=== PATIENT | female | born 1990 | race Caucasian/White ===

== ENCOUNTER 2019-07-06 11:36 | Inpatient (IN) ==
[2019-07-06] MEDS ORDERED: HUMULIN R IV ONE ×3 (12:00→14:37)
[2019-07-06] MEDS ORDERED: NARCAN IV ONE (12:00)
[2019-07-06] MEDS ORDERED: NS 1,000 ML IV ONE ×3 (12:00→13:45)
--- NOTE | 2019-07-06 12:52 | Diag Imaging Result Doc PS360 ---
CHEST-PORTABLE - 07/06/2019 INDICATION: ams COMPARISON: None FINDINGS: The lungs are normally expanded and clear. Heart size and mediastinal contours are normal. No pneumothorax or pleural effusion. IMPRESSION: Negative exam. Electronically signed by Dk Yee 07/06/2019 12:49 PM
[2019-07-06 13:00] LABS: BASO# 0.02 X1000 (0.0-0.2); BASO% 0.1 % (0.0-0.8); HEMATOCRIT 50.3 % (37.0-47.0); HEMOGLOBIN 16.8 g/dL (12.0-16.0); IMM GRAN# 0.02 X1000 (0.0-0.04); IMM GRAN% 0.1 % (0.0-0.5); LYMPH# 0.81 X1000 (1.2-3.4); LYMPH% 5.5 % (20.5-51.1); MCH 26.1 PG (27-31); MCHC 33.4 g/dL (33-37); MCV 78.1 FL (81-99); MONO# 0.53 X1000 (0.11-0.59); MONO% 3.6 % (1.7-9.3); MPV 12.3 FL (7.4-10.4); NEUT# 13.39 X1000 (1.4-6.5); NEUT% 90.7 % (42.2-75.2); PLT 160 X1000 (130-400); RBC 6.44 XMIL (4.2-5.4); RDW 15.3 % (11.5-14.5); WBC 14.77 X1000 (4.8-10.8)
[2019-07-06 13:02] LABS: INR 1.09; PROTIME 14.2 Seconds (11.0-16.0)
[2019-07-06 13:09] LABS: ACETONE SERUM MODERATE (NEGATIVE)
[2019-07-06 13:21] LABS: ESTIMATED GFR > 60
--- NOTE | 2019-07-06 13:27 | Diag Imaging Result Doc PS360 ---
CT HEAD W/O CONTRAST - 07/06/2019 INDICATION: ams COMPARISON: None FINDINGS: The ventricles and sulci are normal in size and contour. No intracranial mass or hemorrhage. The skull is intact. The sinuses mastoids and middle ears are clear. IMPRESSION: Negative exam. This exam was performed using automated exposure control, adjustment of mA or kV according to patient size, and/or use of iterative reconstruction technique Electronically signed by Dk Yee 07/06/2019 1:25 PM
[2019-07-06 13:29] LABS: ACETAMINOPHEN < 1.2 ug/mL (10-30); AGAP 27; ALB/GLOB RATIO 1.5; ALBUMIN 4.9 g/dL (3.5-5.0); ALKALINE PHOSPHATASE 160 U/L (32-104); BUN 7 mg/dL (8-22); CALCIUM 9.9 mg/dL (8.8-10.2); CHLORIDE 101 mmol/L (98-107); CK PROFILE 1275 U/L (24-173); COSMO 288; CREATININE 0.7 mg/dL (0.5-0.9); GLUCOSE 358 mg/dL (70-104); GOT 38 U/L (10-30); GPT 43 U/L (10-36); LIPASE 20 U/L (13-60); MAGNESIUM 1.7 mg/dL (1.5-2.7); POTASSIUM 4.6 mmol/L (3.5-5.1); SALICYLATES < 3.00 mg/dL (3-10); SODIUM 138 mmol/L (136-145); TCO2 10 mmol/L (25-35); TOTAL BILIRUBIN 0.36 mg/dL (0.20-1.00); TOTAL PROTEIN 8.2 g/dL (6.3-8.3)
[2019-07-06] MEDS ORDERED: POTASSIUM CHLORIDE 10% LIQUID PO PRN (13:45)
[2019-07-06] MEDS ORDERED: SODIUM BICARBONATE 8.4% 100 MEQ in STERILE WATER INJ. 500 ML IV PRN ×2 (13:45→14:37)
[2019-07-06] MEDS ORDERED: POTASSIUM CHLORIDE 20 MEQ/SWI 20 MEQ/100 ML IVPB IV PRN ×3 (13:45→14:37)
[2019-07-06] MEDS ORDERED: D50W SYRINGE IV PRN ×3 (13:45→14:37)
[2019-07-06] MEDS ORDERED: MAGNESIUM SULFATE 2 GM/S.W.I. 2 GM/50 ML IVPB IV PRN ×2 (13:45→14:37)
[2019-07-06] MEDS ORDERED: POTASSIUM CHLORIDE 20% LIQUID PO PRN (13:45)
[2019-07-06] MEDS ORDERED: NS 1,000 ML IV SCH (13:45)
[2019-07-06] MEDS ORDERED: SODIUM PHOSPHATE 30 MMOL in D5W 250 ML IV PRN ×2 (13:45→14:37)
[2019-07-06] MEDS ORDERED: HUMULIN R 100 UNIT in NS 100 ML IV SCH ×2 (13:45→14:37)
[2019-07-06 13:51] LABS: BLOOD TYPE ARTERIAL; SAMPLE BLOOD; pH(98.6) 7.29 (7.35-7.45)
[2019-07-06 13:51] LABS: CK INDEX 0.6 (0.0-2.5); CK-MB 7.28 ng/mL (0.0-5.0)
[2019-07-06 13:52] LABS: HCO3-(ACT) 7.3 mmoll (20.0-26.0); MODALITY ROOM AIR; PO2(98.6) 120 mmHg (60-100)
[2019-07-06 13:53] LABS: ALLEN TEST YES
[2019-07-06 13:54] LABS: PCO2(98.6) 15 mmHg (35-45)
[2019-07-06 14:32] LABS: URINE SOURCE CATH
[2019-07-06 14:36] LABS: BILIRUBIN URINE NEGATIVE (NEGATIVE); BLOOD URINE MODERATE (NEGATIVE); COLOR YELLOW; GLUCOSE URINE >1000 mg/dL (NEGATIVE); KETONE URINE >150 mg/dL (NEGATIVE); LEUKOCYTES URINE NEGATIVE (NEGATIVE); NITRITE URINE NEGATIVE (NEGATIVE); PH URINE 5.5; PROTEIN URINE 30 mg/dL (NEGATIVE); TURBIDITY URINE CLEAR (CLEAR); UROBILINOGEN URINE NORMAL (NORMAL)
[2019-07-06 14:37] LABS: UR EPITHELIAL CELLS <10 /HPF (<10); URINE BACTERIA NEGATIVE /HPF; URINE RBC <10 /HPF (<10); URINE WBC <10 /HPF (<10)
[2019-07-06] MEDS ORDERED: POTASSIUM CHLORIDE 40 MEQ/SWI 40 MEQ/100 ML IVPB IV PRN (14:37)
[2019-07-06] MEDS ORDERED: COMPAZINE IV PRN (14:37)
[2019-07-06] MEDS ORDERED: ZOFRAN IV PRN (14:37)
--- NOTE | 2019-07-06 14:39 | PROVIDER DOCUMENTATION ---
This chart was entered by Alena Pitts Scribe, acting as scribe for Skip Mckeon MD. HPI-Neurological Disorder - General Chief Complaint: Overdose Stated Complaint: OVERDOSE Time Seen by Provider: 07/06/19 11:56 Source: EMS Allergies/Adverse Reactions: Patient Allergies Allergy/AdvReac Type Severity Reaction Status Date / Time Unable to Assess Allergy Unverified 07/06/19 14:09 - History of Present Illness-Neuro Nature of Presenting Problem: Patient is an unknown aged female who presents to the ED via EMS after being found unresponsive. EMS states patient was found by mother unresponsive face down in her house. Patient's FSBS on arrival was 391. Severity: reports: moderate Onset/Duration: reports: just prior to arrival Timing: reports: still present Context: reports: found unresponsive by family Character of Altered Mental Status: reports: unresponsive Similar Symptoms Previously?: Yes (per EMS ) Recently seen or treated by another doctor?: Yes (per EMS ) Review of Systems - Adult - REVIEW OF SYSTEMS - ADULT ROS:: unobtainable per condition Constitutional: reports: no symptoms reported Eyes: reports: no symptoms reported Ears, Nose, Mouth & Throat: reports: no symptoms reported Cardiovascular: reports: no symptoms reported Respiratory: reports: no symptoms reported Gastrointestinal: reports: no symptoms reported Genitourinary: reports: no symptoms reported Musculoskeletal: reports: no symptoms reported Integumentary: reports: no symptoms reported Neurological: reports: no symptoms reported Psychiatric: reports: no symptoms reported Endocrine: reports: no symptoms reported Hematologic/Lymphatic: reports: no symptoms reported Allergic/Immunologic: reports: no symptoms reported All Other Systems: Reviewed and Negative Past History - Adult - PAST MEDICAL HISTORY-ADULT Review of Records: reports: Nursing Assessment Review, Medications Reviewed, Social history reviewed & non-contributory.. denies: Old Records Reviewed (Patent is a Génesis Do) Major Childhood Illnesses: reports: denies history Cardiovascular: reports: denies history Respiratory: reports: denies history Gastrointestinal: reports: denies history Obstetrical/Gynecological: reports: denies history Genitourinary: reports: denies history Musculoskeletal: reports: denies history Neurological: reports: denies history Psychiatric: reports: other (psych history per EMS) Endocrine/Immune: reports: denies history Other Conditions: reports: denies history - FAMILY HISTORY Family History: reviewed, not pertinent - SOCIAL HISTORY Smoking: other (unable to assess per patient's condition) Substance Use: other (unable to assess per patient's condition) Physical Exam- Neurological - Physical Exam-Neuro Initial Vital Signs Reviewed: Yes General Appearance: combative (when aroused.), other (unresponsive. arousable with painful stimuli. patient becomes combative and agitated when aroused.). negative: anxious Eye Exam: bilateral eye: other (7 mm pupils) HENMT: normocephalic/atraumatic, other (dry mucous membranes. food particles present in mouth.). negative: angioedema Head Injury: no evidence of injury. negative: active bleeding, lacerations Respiratory: chest non-tender, increased rate. negative: respiratory distress, crackles, rhonchi Cardiovascular: normal peripheral pulses, tachycardia. negative: systolic murmur Abdominal Exam: normal bowel sounds, non tender, soft. negative: guarding, rebound Extremity: normal inspection. negative: deformity, swelling aerosol supervisor Exam: other (unable to assess per patient's condition) Motor/Sensory: other (unable to assess per patient's condition) Neurologic: other (unable to assess per patient's condition) Psych/Mental Status: disheveled (patient is covered in dry emesis and stool.), other (unresponsive. arousable with painful stimuli. patient becomes combative and agitated when aroused.). negative: normal mood/affect Progress - PLAN OF CARE/RESULTS Progress/Plan/Lab Results: Vital Signs - 8 hr 07/06/19 11:56 Temperature 97.5 F L Pulse Rate 120 H Respiratory Rate 18 Blood Pressure 105/73 O2 Sat by Pulse Oximetry 98 Bedside Urine ED: Urine Bedside Start: 07/06/19 11:57 Freq: ORDERED Status: Active Protocol: Activity Type Activity Date Activity User E-Sign Co-Sign Detail Recorded Client Recorded Date Recorded By Document 07/06/19 14:26 [id number] 07/06/19 14:27 [id number] 07/06/19 14:26 Point of Care [Bedside Point of Care] -Lot # [id number] - Results Negative -Control Line Visible? Yes -Additional Comment exp 06/19/20 Laboratory Results - last 24 hr 07/06/19 07/06/19 07/06/19 11:45 12:42 12:42 WBC RBC Hgb Hct MCV MCH MCHC RDW Std Deviation Plt Count MPV Immature Gran % (Auto) Neut % (Auto) Lymph % (Auto) [place] % (Auto) Eos % (Auto) Baso % (Auto) Immature Gran # (Auto) Neut # (Auto) Lymph # (Auto) [place] # (Auto) Eos # (Auto) Baso # (Auto) PT INR Specimen Type ARTERIAL Sample Site R RADIAL pH 7.29 L pCO2 15 L* pO2 120 H HCO3 7.3 L Base Excess -19.0 L ABG O2 Saturation 98.0 Armaan Test YES Total Hemoglobin 8.0 L Blood Gas Modality ROOM AIR Sodium 138 Potassium 4.6 Chloride 101 Carbon Dioxide 10 L Anion Gap 27 BUN 7 L Creatinine 0.7 Estimated GFR/1.73 m2 > 60 BUN/Creatinine Ratio 10 Glucose 358 H POC Glucose Calculated Osmolality 288 Calcium 9.9 Magnesium 1.7 Total Bilirubin 0.36 AST 38 H ALT 43 H Alkaline Phosphatase 160 H Creatine Kinase 1275 H Creatine Kinase Index 0.6 CK-MB (CK-2) 7.28 H Troponin T [id number] Pept Total Protein 8.2 Albumin 4.9 Globulin 3.3 Albumin/Globulin Ratio 1.5 Lipase 20 Plasma Lactate TSH 1.21 Urine Source Salicylates < 3.00 L Acetaminophen < 1.2 L Plasma/Serum Ethyl Alc Acetone Level MODERATE A 07/06/19 07/06/19 07/06/19 12:42 12:42 12:42 WBC 14.77 H RBC 6.44 H Hgb 16.8 H Hct 50.3 H MCV 78.1 L MCH 26.1 L MCHC 33.4 RDW Std Deviation 15.3 H Plt Count 160 MPV 12.3 H Immature Gran % (Auto) 0.1 Neut % (Auto) 90.7 H Lymph % (Auto) 5.5 L [place] % (Auto) 3.6 Eos % (Auto) 0.0 Baso % (Auto) 0.1 Immature Gran # (Auto) 0.02 Neut # (Auto) 13.39 H Lymph # (Auto) 0.81 L [place] # (Auto) 0.53 Eos # (Auto) 0.00 Baso # (Auto) 0.02 PT INR Specimen Type Sample Site pH pCO2 pO2 HCO3 Base Excess ABG O2 Saturation Armaan Test Total Hemoglobin Blood Gas Modality Sodium Potassium Chloride Carbon Dioxide Anion Gap BUN Creatinine Estimated GFR/1.73 m2 BUN/Creatinine Ratio Glucose POC Glucose Calculated Osmolality Calcium Magnesium Total Bilirubin AST ALT Alkaline Phosphatase Creatine Kinase Creatine Kinase Index CK-MB (CK-2) Troponin T [id number]-Vykqpkyfcny Pept 5 Total Protein Albumin Globulin Albumin/Globulin Ratio Lipase Plasma Lactate TSH Urine Source Salicylates Acetaminophen Plasma/Serum Ethyl Alc Acetone Level 07/06/19 07/06/19 07/06/19 12:42 12:42 12:50 WBC RBC Hgb Hct MCV MCH MCHC RDW Std Deviation Plt Count MPV Immature Gran % (Auto) Neut % (Auto) Lymph % (Auto) [place] % (Auto) Eos % (Auto) Baso % (Auto) Immature Gran # (Auto) Neut # (Auto) Lymph # (Auto) [place] # (Auto) Eos # (Auto) Baso # (Auto) PT 14.2 INR 1.09 Specimen Type Sample Site pH pCO2 pO2 HCO3 Base Excess ABG O2 Saturation Armaan Test Total Hemoglobin Blood Gas Modality Sodium Potassium Chloride Carbon Dioxide Anion Gap BUN Creatinine Estimated GFR/1.73 m2 BUN/Creatinine Ratio Glucose POC Glucose Calculated Osmolality Calcium Magnesium Total Bilirubin AST ALT Alkaline Phosphatase Creatine Kinase Creatine Kinase Index CK-MB (CK-2) Troponin T < 0.010 [id number]-Zhzbosfwhpg Pept Total Protein Albumin Globulin Albumin/Globulin Ratio Lipase Plasma Lactate 1.2 TSH Urine Source Salicylates Acetaminophen Plasma/Serum Ethyl Alc Acetone Level 07/06/19 07/06/19 13:45 14:05 WBC RBC Hgb Hct MCV MCH MCHC RDW Std Deviation Plt Count MPV Immature Gran % (Auto) Neut % (Auto) Lymph % (Auto) [place] % (Auto) Eos % (Auto) Baso % (Auto) Immature Gran # (Auto) Neut # (Auto) Lymph # (Auto) [place] # (Auto) Eos # (Auto) Baso # (Auto) PT INR Specimen Type Sample Site pH pCO2 pO2 HCO3 Base Excess ABG O2 Saturation Armaan Test Total Hemoglobin Blood Gas Modality Sodium Potassium Chloride Carbon Dioxide Anion Gap BUN Creatinine Estimated GFR/1.73 m2 BUN/Creatinine Ratio Glucose POC Glucose 305 H Calculated Osmolality Calcium Magnesium Total Bilirubin AST ALT Alkaline Phosphatase Creatine Kinase Creatine Kinase Index CK-MB (CK-2) Troponin T Epe-M-Msihhawdtzb Pept Total Protein Albumin Globulin Albumin/Globulin Ratio Lipase Plasma Lactate TSH Urine Source CATH Salicylates Acetaminophen Plasma/Serum Ethyl Alc Acetone Level Orders Category Date Time Status Cardiac Monitoring DIRECTED Care 07/06/19 13:45 Active ED: Urine Bedside ORDERED Care 07/06/19 11:57 Active FSBS/Accucheck Result Q15M Care 07/06/19 13:47 Active FSBS/Accucheck Result Q1H Care 07/06/19 13:45 Active Finger Stick Blood Sugar (ED) DIRECTED Care 07/06/19 11:58 Completed Smart Cath Insertion ORDERED Care 07/06/19 11:58 Active Hypoglycemia/FSBS <50 or Range of 50-70 PRN Care 07/06/19 13:47 Active Notify Physician ORDERED Care 07/06/19 13:47 Active Nursing- Obtain EKG once Care 07/06/19 11:58 Active Saline Loc DIRECTED Care 07/06/19 13:47 Active Saline Loc NOW Care 07/06/19 11:58 Active Saline Loc NOW Care 07/06/19 13:45 Active Vital Signs Order Q1H Care 07/06/19 13:45 Active CHEST-PORTABLE [RAD] Stat Exams 07/06/19 12:[address] HEAD W/O CONTRAST [CT] Stat Exams 07/06/19 12:00 Completed ABG [RESP] Routine Lab 07/06/19 11:45 Completed ACETAMINOPHEN [TDM] Stat Lab 07/06/19 12:42 Completed ACETONE SERUM [CHEM] Stat Lab 07/06/19 12:42 Completed ALCOHOL BLOOD Stat Lab 07/06/19 12:42 Completed AMMONIA [CHEM] Stat Lab 07/06/19 12:50 Received BLOOD CULTURE [BLDCUL] Stat Lab 07/06/19 12:50 Ordered CBC WITH ELECTRONIC DIFF [HEME] Stat Lab 07/06/19 12:42 Completed CK PROFILE [SP CHEM] Stat Lab 07/06/19 12:42 Completed COMPREHENSIVE METABOLIC PANEL [CHEM] Stat Lab 07/06/19 12:42 Completed LACTATE, PLASMA [CHEM] Stat Lab 07/06/19 12:50 Completed LIPASE [CHEM] Stat Lab 07/06/19 12:42 Completed MAGNESIUM [CHEM] Stat Lab 07/06/19 12:42 Completed PHOSPHORUS [CHEM] Stat Lab 07/06/19 13:50 Ordered POTASSIUM [CHEM] Timed Lab 07/06/19 13:50 Ordered PRO B-NATRIURETIC PEPTIDE Stat Lab 07/06/19 12:42 Completed PROTIME WITH INR [COAG] Stat Lab 07/06/19 12:42 Completed SALICYLATES [TDM] Stat Lab 07/06/19 12:42 Completed TROPONIN T Stat Lab 07/06/19 12:42 Completed TSH Stat Lab 07/06/19 12:42 Completed URINALYSIS W/POSS RFLX CULT [URINALYSIS] Stat Lab 07/06/19 14:05 Results URINE DRUG SCREEN Stat Lab 07/06/19 14:05 Received 0.9% Sodium Chloride Inj [Ns] 1,000 ml Med 07/06/19 13:45 Active IV 500 mls/hr 0.9% Sodium Chloride Inj [Ns] 1,000 ml Med 07/06/19 12:00 Discontinued IV 999 mls/hr 0.9% Sodium Chloride Inj [Ns] 1,000 ml Med 07/06/19 12:00 Discontinued IV 999 mls/hr 0.9% Sodium Chloride Inj [Ns] 1,000 ml Med 07/06/19 13:45 Active IV 999 mls/hr 0.9% Sodium Chloride Inj [Ns] 100 ml Med 07/06/19 13:45 Active Insulin Human Regular [Humulin R] 100 unit IV Per Protocol mls/hr Dextrose 50% Syringe [D50w Syringe] Med 07/06/19 13:45 Active 25 ml IV PRN PRN Dextrose 50% Syringe [D50w Syringe] Med 07/06/19 13:45 Active 50 ml IV PRN PRN Insulin Human Regular [Humulin R] Med 07/06/19 12:00 Discontinued 10 unit IV NOW ONE Insulin Human Regular [Humulin R] Med 07/06/19 13:45 Discontinued 6.6 unit IV ONCE ONE Magnesium Sulfate 2 gm/S.w.i. Med 07/06/19 13:45 Active 2 gm in 50 ml IV ONCE PRN Naloxone [Narcan] Med 07/06/19 12:00 Discontinued 0.4 mg IV NOW ONE Potassium Chloride 10% Liquid Med 07/06/19 13:45 Active 20 meq PO ONCE PRN PRN Potassium Chloride 20 Meq/Swi Med 07/06/19 13:45 Active 20 meq in 100 ml IV ONCE PRN Potassium Chloride 20 Meq/Swi Med 07/06/19 13:45 Active 20 meq in 100 ml IV ONCE PRN Potassium Chloride 20% Liquid Med 07/06/19 13:45 Active 40 meq PO ONCE PRN PRN Sodium Bicarbonate 8.4% 100 meq Med 07/06/19 13:45 Active Water, Sterile Inj [Sterile Water Inj] 500 ml IV ONCE PRN Sodium Phosphate 30 mmol Med 07/06/19 13:45 Active Dextrose 5%-Water Inj [D5w] 250 ml IV ONCE PRN Hypoglycemia Stat Oth 07/06/19 13:45 Ordered EKG [EKG] Stat Ther 07/06/19 11:58 Ordered Transfer/Admit Order [TRANSFER] Routine Transfer 07/06/19 14:18 Ordered Result Diagrams: 07/06/19 12:42 07/06/19 12:42 - REASSESSMENT Reassessment #1 Time Reassessed: 14:36 Status: unchanged (No response to NARCAN. Given IVF bolus, IV insulin and placed on DKA protocol.) - EKG 1 Time of EKG reading by physician:: 13:48 EKG Read and Signed by:: Skip Mckeon EKG Interpretation (*Must complete 3 of following elements*): Abnormal Rate: 122 Rhythm: sinus tachycardia [place]: normal MI Interval: normal Comments: LAE, NSSTTWC, and high voltage - XRAY 1 XRAY Study: Chest Impression: See EMR Report ( CHEST-PORTABLE - 07/06/2019 INDICATION: ams COMPARISON: None FINDINGS: The lungs are normally expanded and clear. Heart size and mediastinal contours are normal. No pneumothorax or pleural effusion. IMPRESSION: Negative exam. Electronically signed by Dk Yee 07/06/2019 12:49 PM 07/06/19 1249 Interpreting Physician: Dk Yee MD Dictated Date/Time: 07/06/19 1245 cc: Skip Mckeon MD; None,PCP) - CT/MRI 1 CT Study: Head Impression: See EMR Report ( CT HEAD W/O CONTRAST - 07/06/2019 INDICATION: ams COMPARISON: None FINDINGS: The ventricles and sulci are normal in size and contour. No intracranial mass or hemorrhage. The skull is intact. The sinuses mastoids and middle ears are clear. IMPRESSION: Negative exam. This exam was performed using automated exposure control, adjustment of mA or kV according to patient size, and/or use of iterative reconstruction technique Electronically signed by Dk Yee 07/06/2019 1:25 PM 07/06/19 1325 Interpreting Physician: Dk Yee MD Dictated Date/Time: 07/06/19 1324 cc: Skip Mckeon MD; None,PCP) - CONSULTS/PCP/HOSPITALIST Notification #1 *Consult/PCP/Hospitalist*: Adriana Time Discussed: 14:14 (Christianne) Consult Disposition: Will see in ED, Admit Departure - Departure Date of Disposition Decision: 07/06/19 Time of Disposition Decision: 14:37 DIAGNOSIS: Altered mental status associated with intoxication, Substance abuse/dependence, Type 2 diabetes mellitus with ketoacidosis and coma, without long-term current use of insulin Disposition: ADMITTED INPATIENT 09 Certified Medical Emergency: Emergent Condition: Critical Referrals and Follow-Ups: None,PCP [Primary Care Provider] - - Critical Care Note This patient required my direct & personal management of CC.: Yes Total Time (mins): 50 Critical Care Statement: This patient required my direct personal management to treat or rule out processes, the absence of which, could potentiallly result in sudden, clinically significant life or limb threatening deterioration. Attestation - Physician/ CECIL Attestation Patient care was provided by Advanced Practice Provider:: No The physician spent face to face time with patient:: Yes Advanced Practice Provider documentation review:: Supervising physician onsite and consulted in the evaluation and care of this patient. The physician did have a face to face encounter with the patient. This chart was documented by the indicated scribe, (Alena Pitts Scribe) and accurately reflects the services I performed and decisions made by me, Skip Mckeon MD, as attested by the provider's signature.
[2019-07-06 14:50] LABS: UR AMPHETAMINES QUAL PRESUMPTIVE POSITIVE (NONE DETECT); UR BARBITUATES QUAL NONE DETECTED (NONE DETECT); UR BENZODIAZEPIN QUAL PRESUMPTIVE POSITIVE (NONE DETECT); UR CANNABINOIDS QUAL NONE DETECTED (NONE DETECT); UR COCAINE QUAL NONE DETECTED (NONE DETECT); UR METHADONE QUAL NONE DETECTED (NONE DETECT); UR OPIATES QUAL NONE DETECTED (NONE DETECT); UR OXYCODONE QUAL NONE DETECTED (NONE DETECT); UR PCP QUAL NONE DETECTED (NONE DETECT)
--- NOTE | 2019-07-06 15:22 | EKG Report ---
Test Performed on : 07/06/2019 1:48:19 PM Test Reason : ams Blood Pressure : / mmHG Vent. Rate : 122 BPM Atrial Rate : 122 BPM P-R Int : 148 ms QRS Dur : 076 ms QT Int : 330 ms P-R-T Axes : 032 067 025 degrees QTc Int : 470 ms Sinus tachycardia. Possible Left atrial enlargement Borderline ECG No previous ECGs available Unconfirmed Result
[2019-07-06 15:43] LABS: AGAP 23; BUN 6 mg/dL (8-22); CALCIUM 8.5 mg/dL (8.8-10.2); CHLORIDE 110 mmol/L (98-107); COSMO 291; CREATININE 0.6 mg/dL (0.5-0.9); ESTIMATED GFR > 60; GLUCOSE 279 mg/dL (70-104); MAGNESIUM 1.4 mg/dL (1.5-2.7); PHOSPHORUS 3.6 mg/dL (2.7-4.5); POTASSIUM 3.9 mmol/L (3.5-5.1); SODIUM 142 mmol/L (136-145); TCO2 9 mmol/L (25-35)
[2019-07-06] MEDS ORDERED: MAGNESIUM SULFATE 2 GM/S.W.I. 2 GM/50 ML IVPB IV ONE (16:19)
--- NOTE | 2019-07-06 16:21 | HISTORY AND PHYSICAL ---
PRIMARY CARE PROVIDER: Unknown. CHIEF COMPLAINT: Overdose, DKA. HPI: The patient is a Génesis Huerta who was brought in by EMS from her residence found by her mother unresponsive lying face down in her house. Fingerstick blood sugar on arrival was 391. Due to patient being obtunded and no family at bedside we were unable to put in a name however they do have a pretty good idea of who she is as she came from her residence and her mother was present Tawnya Collier 1990 known for diabetes, suicidal ideations, schizoaffective disorder, hypothyroidism, visual hallucination and audio hallucinations with multiple admissions and discharges from [facility]. Most recently discharged from [facility] in October 2018 secondary to schizoaffective disorder bipolar type episode, suicidal ideations and insomnia as well as the noncompliance with medication regimen. She also has a known history of drug abuse I believe with methamphetamine. Workup in the ED patient was found to be acidotic and in diabetic ketoacidosis. She was initiated on the DKA protocol and will be fluid resuscitated and placed on IV insulin in the ICU. Head CT did not show anything acute. The patient does not arouse to voice. She only aroused to painful stimuli and then she only mumbles she does not really open her eyes, again she will be placed in the ICU for treatment for DKA and further treatment and management. PAST MEDICAL HISTORY: 1. Diabetes mellitus. 2. Hypothyroidism. 3. Schizoaffective with bipolar disorder. 4. Suicidal ideations. 5. Auditory and visual hallucinations. 6. Medical noncompliance. PAST SURGICAL HISTORY: Unknown. SOCIAL HISTORY: Unknown. FAMILY HISTORY: Unknown. HOME MEDICATIONS: Unknown. ALLERGIES: Unknown. REVIEW OF SYSTEMS: Hard to obtain secondary to the patient being obtunded. PHYSICAL EXAMINATION: VITAL SIGNS: Temperature is 97.5 degrees, heart rate 120, respirations 18, blood pressure 105/73, O2 is 98% on room air. GENERAL: Génesis Huerta is a female who is lying in the bed only arouses to painful stimuli. Does not follow any commands. HEENT: Atraumatic, normocephalic. Pupils are 3 to 4 they are slow to react. NECK: Supple, trachea midline. CV: Tachycardic, S1, S2 appreciated. No murmurs, gallops, rubs noted. RESPIRATORY: Lung sounds clear bilaterally. No rales, rhonchi, or wheezes. GI: Appears to be soft, nontender, nondistended. Positive bowel sounds 4 quads. LOWER EXTREMITIES: Negative for edema. SKIN: She does have what appears to be cutting to her left inner forearm. They all appear to be superficial cuts none of them are really deep. NEURO: Unable to assess. Patient only arouses to painful stimuli. DIAGNOSTIC DATA: Chest x-ray negative exam. Head CT negative. LABORATORY DATA: White count 14, hemoglobin and hematocrit 16 and 50, platelet count is 160,000. ABG, pH 7.29, pCO2 15, PO2 120, bicarb 7.3, base excess 19, O2 saturation 98% on room air. Sodium 138, potassium 4.6, BUN 7, creatinine 0.7, blood glucose is 358, AST 38, ALT 43, alkaline phosphatase 160, CK 1275, CK-MB 7.28, troponin less than 0.010. Acetone level moderate, salcylate less than 3, acetaminophen less than 1.2, serum alcohol level is 0. The last of her tox screen is currently pending. Urinalysis is negative for any bacteria or nitrites. ASSESSMENT AND PLAN: 1. Presumed overdose on unknown drugs. She was given Narcan in the emergency department without any response. We will monitor her in ICU with frequent neuro checks. 2. Diabetic ketoacidosis. We will place her on the DKA protocol and continue with aggressive IV hydration. 3. Further recommendation to follow physician evaluation, laboratory and diagnostic data. Dictated by RASHAD Olivares for Loree Faust MD cc: Loree Faust MD I performed a face to face encounter on the patient. I reviewed all labs and imaging on the patient. I agree with the H&P as dictated. The patient was brought to the ER as a Génesis Huerta after being found by her mother unresponsive at her mother's house. Upon arrival the patient was noted to be comatose and only responsive to painful stimuli. Her drug toxicology screen was noted to be positive for multiple substances. The patient will be admitted with a diagnosis of toxic metabolic encephalopathy and DKA. She will be admitted to the ICU and started on the DKA protocol. Will also monitor neurochecks. Will consult with social work professor to assist with contacting the patient's next of kin. JUDITH
[2019-07-06 17:35] LABS: ALLEN TEST YES; BLOOD TYPE ARTERIAL; HCO3-(ACT) 15.5 mmoll (20.0-26.0); METHB 0.9 % (0.0-1.5); O2(CT) 18.2 mL/dL (15.0-23.0); O2HB 95.1 % (95.0-99.0); PCO2(98.6) 28 mmHg (35-45); PO2(98.6) 82 mmHg (60-100); SAMPLE BLOOD; SAO2 97.7 % (95.0-100.0); THB 13.6 g/dL (11.5-17.4); pH(98.6) 7.28 (7.35-7.45)
[2019-07-06 17:37] LABS: MODALITY ROOM AIR
[2019-07-06] MEDS: NS 1,000 ML IV SCH ×2 (18:53→23:04)
[2019-07-06 19:48] LABS: ESTIMATED GFR > 60
[2019-07-06 19:51] LABS: AGAP 15; BUN 5 mg/dL (8-22); CALCIUM 8.6 mg/dL (8.8-10.2); CHLORIDE 116 mmol/L (98-107); COSMO 291; CREATININE 0.6 mg/dL (0.5-0.9); GLUCOSE 189 mg/dL (70-104); MAGNESIUM 1.7 mg/dL (1.5-2.7); PHOSPHORUS 2.5 mg/dL (2.7-4.5); SODIUM 145 mmol/L (136-145); TCO2 14 mmol/L (25-35)
[2019-07-06] MEDS: D5 NS 1,000 ML IV PRN (21:14)
[2019-07-06] MEDS: POTASSIUM CHLORIDE 10 MEQ/SWI 10 MEQ/100 ML IVPB IV SCH (21:15)
[2019-07-06 23:45] LABS: ESTIMATED GFR > 60
[2019-07-07 00:01] LABS: AGAP 17; BUN 4 mg/dL (8-22); CALCIUM 8.2 mg/dL (8.8-10.2); CHLORIDE 114 mmol/L (98-107); COSMO 291; CREATININE 0.5 mg/dL (0.5-0.9); GLUCOSE 222 mg/dL (70-104); MAGNESIUM 1.9 mg/dL (1.5-2.7); PHOSPHORUS 2.7 mg/dL (2.7-4.5); POTASSIUM 3.7 mmol/L (3.5-5.1); SODIUM 144 mmol/L (136-145); TCO2 13 mmol/L (25-35)
[2019-07-07] MEDS: POTASSIUM CHLORIDE 10 MEQ/SWI 10 MEQ/100 ML IVPB IV SCH (00:01)
[2019-07-07] MEDS ORDERED: BLISTEX MEDICATED BERRY LIP BALM TOP PRN (02:54)
[2019-07-07 04:09] LABS: AGAP 13; BUN 4 mg/dL (8-22); CALCIUM 8.4 mg/dL (8.8-10.2); CHLORIDE 115 mmol/L (98-107); COSMO 289; CREATININE 0.5 mg/dL (0.5-0.9); ESTIMATED GFR > 60; GLUCOSE 197 mg/dL (70-104); MAGNESIUM 1.7 mg/dL (1.5-2.7); PHOSPHORUS 2.1 mg/dL (2.7-4.5); POTASSIUM 3.8 mmol/L (3.5-5.1); SODIUM 144 mmol/L (136-145); TCO2 16 mmol/L (25-35)
[2019-07-07] MEDS ORDERED: POTASSIUM CHLORIDE 20 MEQ in NS 100 ML IV ONE (05:00)
[2019-07-07] MEDS: NS 1,000 ML IV SCH (05:44)
[2019-07-07] MEDS: D5 NS 1,000 ML IV PRN (06:10)
[2019-07-07 06:12] LABS: BASO# 0.01 X1000 (0.0-0.2); BASO% 0.1 % (0.0-0.8); EOS# 0.03 X1000 (0.0-0.7); EOS% 0.3 % (0.0-10.0); HEMATOCRIT 42.5 % (37.0-47.0); HEMOGLOBIN 14.5 g/dL (12.0-16.0); IMM GRAN# 0.02 X1000 (0.0-0.04); IMM GRAN% 0.2 % (0.0-0.5); LYMPH# 1.07 X1000 (1.2-3.4); LYMPH% 11.2 % (20.5-51.1); MCH 26.8 PG (27-31); MCHC 34.1 g/dL (33-37); MCV 78.6 FL (81-99); MONO# 0.42 X1000 (0.11-0.59); MONO% 4.4 % (1.7-9.3); MPV 12.1 FL (7.4-10.4); NEUT# 7.98 X1000 (1.4-6.5); NEUT% 83.8 % (42.2-75.2); PLT 131 X1000 (130-400); RBC 5.41 XMIL (4.2-5.4); RDW 15.4 % (11.5-14.5); WBC 9.53 X1000 (4.8-10.8)
[2019-07-07 06:46] LABS: MAGNESIUM 1.7 mg/dL (1.5-2.7); PHOSPHORUS 2.2 mg/dL (2.7-4.5)
--- NOTE | 2019-07-07 06:56 | Diag Imaging Result Doc PS360 ---
EXAM: CHEST-PORTABLE 07/07/2019 HISTORY: FOLLOW UP TECHNIQUE: AP portable supine at 0449 COMMENT: Considering differences in technique there has been no significant change since the previous study of 07/06/2019. IMPRESSION: Stable chest. Electronically signed by Brian Clarke 07/07/2019 6:53 AM
[2019-07-07 08:28] LABS: AGAP 12; BUN 3 mg/dL (8-22); CALCIUM 8.6 mg/dL (8.8-10.2); CHLORIDE 112 mmol/L (98-107); COSMO 282; CREATININE 0.5 mg/dL (0.5-0.9); ESTIMATED GFR > 60; GLUCOSE 208 mg/dL (70-104); MAGNESIUM 1.6 mg/dL (1.5-2.7); PHOSPHORUS 2.1 mg/dL (2.7-4.5); POTASSIUM 3.9 mmol/L (3.5-5.1); SODIUM 140 mmol/L (136-145); TCO2 16 mmol/L (25-35)
[2019-07-07 09:22] LABS: ALLEN TEST YES; BE -7.1 mmoll (-3.0-3.0); BLOOD TYPE ARTERIAL; HCO3-(ACT) 19.3 mmoll (20.0-26.0); METHB 0.8 % (0.0-1.5); O2(CT) 18.3 mL/dL (15.0-23.0); PCO2(98.6) 28 mmHg (35-45); PO2(98.6) 82 mmHg (60-100); SAMPLE BLOOD; SAO2 97.4 % (95.0-100.0); THB 13.7 g/dL (11.5-17.4); pH(98.6) 7.38 (7.35-7.45)
[2019-07-07 09:23] LABS: MODALITY ROOM AIR
[2019-07-07] MEDS ORDERED: LEVEMIR SUBQ ONE (09:26)
[2019-07-07] MEDS: SODIUM CHLORIDE 0.9% INJ SCH (10:23)
[2019-07-07] MEDS: PROTONIX IV SCH (10:23)
[2019-07-07] MEDS ORDERED: INSULIN PEN NEEDLES ONE (10:23)
[2019-07-07] MEDS: HUMULIN R SUBQ SCH ×4 (10:29→20:40)
[2019-07-07] MEDS: ATIVAN IV PRN ×3 (11:08→22:37)
[2019-07-07] MEDS: D5 NS 1,000 ML IV SCH ×2 (12:39→16:53)
[2019-07-07] MEDS: LOVENOX SUBQ SCH (20:15)
[2019-07-07] MEDS: LEVEMIR SUBQ SCH (20:15)
[2019-07-07] MEDS ORDERED: VASELINE TOP PRN (23:13)
[2019-07-08] MEDS: HUMULIN R SUBQ SCH ×5 (01:43→20:28)
--- NOTE | 2019-07-08 03:54 | PROGRESS NOTE ---
DATE: 07/07/2019 SUBJECTIVE: The patient is confused and combative. She does not answer questions or follow commands. OBJECTIVE: Vital Signs: Temperature 98.6 degrees, blood pressure 113/66, heart rate 106, respirations 15, O2 saturation 97% on room air. General: This is a young appearing female, lying in bed in no acute distress. Heart: S1, S2, normal. Tachycardic. Lungs: Equal air entry bilaterally. No wheezing. No rales. Abdomen: Positive bowel sounds. Soft, nontender, nondistended. Extremities: No edema, no cyanosis. Neurologic: The patient is awake, but does not follow commands and is very combative. LABS: White blood cell count 9.5, hemoglobin 14, hematocrit 42, platelets 131,000. Sodium 140, potassium 3.9, chloride 112, CO2 16, BUN 3, creatinine 0.5, glucose 208. Acetone negative. ASSESSMENT AND PLAN: 1. Diabetic ketoacidosis. Resolved. We will transition the patient to long-acting insulin and sliding scale insulin. Will monitor the Accu-Cheks every 4 hours. 2. Drug overdose. The patient's drug toxicology screen was positive for amphetamines and benzodiazepines. It is unknown what else the patient took outside of what is showing up on her toxicology screen. We will continue to hydrate the patient and wait for her mental status to improve. 3. Toxic metabolic encephalopathy. The head CT was negative. We will continue to monitor the patient closely for improvement. We will also consult with Neurology for further recommendations. 4. Schizoaffective disorder and bipolar disorder. Aware. 5. Gastrointestinal prophylaxis. Continue on Protonix. 6. Deep vein thrombosis prophylaxis. We will start the patient on Lovenox. cc: Loree Faust MD
[2019-07-08] MEDS: D5 NS 1,000 ML IV SCH (05:43)
[2019-07-08 05:59] LABS: BASO# 0.02 X1000 (0.0-0.2); BASO% 0.3 % (0.0-0.8); EOS# 0.05 X1000 (0.0-0.7); EOS% 0.7 % (0.0-10.0); HEMATOCRIT 38.5 % (37.0-47.0); HEMOGLOBIN 12.9 g/dL (12.0-16.0); LYMPH# 1.89 X1000 (1.2-3.4); LYMPH% 25.5 % (20.5-51.1); MCH 26.4 PG (27-31); MCHC 33.5 g/dL (33-37); MCV 78.9 FL (81-99); MONO# 0.45 X1000 (0.11-0.59); MONO% 6.1 % (1.7-9.3); MPV 12.4 FL (7.4-10.4); NEUT# 4.99 X1000 (1.4-6.5); NEUT% 67.4 % (42.2-75.2); PLT 128 X1000 (130-400); RBC 4.88 XMIL (4.2-5.4); RDW 15.3 % (11.5-14.5)
[2019-07-08 06:02] LABS: AGAP 14; ALBUMIN 3.2 g/dL (3.5-5.0); BUN 4 mg/dL (8-22); CALCIUM 8.5 mg/dL (8.8-10.2); CHLORIDE 113 mmol/L (98-107); COSMO 289; CREATININE 0.4 mg/dL (0.5-0.9); ESTIMATED GFR > 60; GLUCOSE 200 mg/dL (70-104); MAGNESIUM 1.4 mg/dL (1.5-2.7); PHOSPHORUS 2.4 mg/dL (2.7-4.5); POTASSIUM 3.4 mmol/L (3.5-5.1); SODIUM 144 mmol/L (136-145); TCO2 17 mmol/L (25-35)
[2019-07-08] MEDS: LEVEMIR SUBQ SCH (08:22)
[2019-07-08] MEDS: PROTONIX IV SCH (08:52)
[2019-07-08] MEDS: HALDOL IV PRN ×3 (09:01→20:43)
[2019-07-08] MEDS: D5 1/2 NS 1,000 ML IV SCH (09:01)
[2019-07-08] MEDS: MAGNESIUM SULFATE 2 GM/S.W.I. 2 GM/50 ML IVPB IV SCH ×2 (09:09→12:14)
--- NOTE | 2019-07-08 10:45 | PROGRESS NOTE ---
DATE: 07/08/2019 INTERVAL HISTORY: No acute events overnight. She continued to remain tachycardic. Otherwise, her vitals were unremarkable. Her WBC has trended down. Her DKA has resolved. She continues to remain confused and not really responding to commands. However, occasionally, she would become agitated, requiring lorazepam at nighttime. SUBJECTIVE: She keeps her eyes closed and keeps moaning. Does not respond to commands. Occasionally, she opens eyes but does not engage in a conversation. She is spontaneously moving inside the bed. No jerky movements noticed. VITAL SIGNS: Temperature of 99.1 degrees, pulse 113, respiratory rate 17, blood pressure 120/78. She is saturating 95% on room air. PHYSICAL EXAMINATION: Oral cavity appears very dry. Pupils are bilaterally round, reacting to light equally. She is tracking both sides of midline. Lungs: Air entry bilaterally equal. No wheeze, rhonchi, crackles. Cardiovascular: S1, S2 normal. No murmur, rub, or gallop. Abdomen: Soft, nontender. She does not have any lower extremity edema. She has a urine catheter. She is moving both upper and lower extremities to mild painful stimuli. She starts moaning when I apply pressure over her fingers and toes. Nursing team at bedside. LABS: Suggestive of resolution of leukocytosis. Normal hemoglobin. Slight decrease in platelet count. She does have hypokalemia, hyperchloremia related to intravenous fluids, improving bicarbonate, normal kidney function, stable blood sugars. Her hypomagnesemia is currently being repleted. No new imaging. ASSESSMENT AND PLAN: 1. Acute encephalopathy, likely toxic, related to recreational substance abuse. I will follow up with an electroencephalogram to rule out any subclinical seizure activity. Her head CT on admission did not have any acute pathology. 2. Diabetic ketoacidosis on presentation with history of type 1 diabetes mellitus, insulin dependent. I do not have any information about home medications. I will continue D5 containing intravenous fluids. We will replete electrolytes. I will change fluids to half- normal saline from normal saline. I will continue her on subcutaneous and subcutaneous long- acting and short-acting insulin. 3. Disposition. I will continue to monitor patient inside the hospital. The patient has not really improved despite almost 48 hours since presentation. I will consider consulting neurology. I will also try and get in touch with the family. Plan of care discussed with nursing team at the bedside. Their questions have been answered. 4. Polysubstance abuse. I will hiv counselor patient about cessation of these substances once medically appropriate. 5. She also has a history of schizoaffective disorder and suicidal ideation. I will resume her home medications once reconciled. cc: Placido Garcia MD
[2019-07-08] MEDS ORDERED: OFIRMEV 1000 MG/ISOTONIC SOLN 1,000 MG/100 ML BOTTLE IV PRN (16:51)
--- NOTE | 2019-07-08 18:49 | EEG REPORT ---
DATE: 07/08/2019 REFERRING PHYSICIAN: Elisabeth Guevara MD WINDOWS SECURITY ANALYST: Leyla Mccray BACKGROUND INFORMATION/TECHNIQUE: This is a portable digitally recorded routine EEG with video. HISTORY: This is a female patient Génesis Huerat who was found down. EEG is ordered to detect evidence of seizures. EEG FINDINGS: A posterior dominant alpha rhythm is not seen. The background at maximal alertness consists of mixed frequencies, alpha, beta, and theta with rare delta. No definite persistent focal slowing. No epileptiform discharges. No seizures. Hyperventilation was not performed. Photic stimulation induces a normal driving response. Drowsing as well as stage II sleep is seen. The EKG demonstrates regular RR intervals. IMPRESSION AND CLINICAL CORRELATION: Abnormal routine EEG due to mild to moderate diffuse slowing indicative of a mild to moderate nonspecific encephalopathy. No epileptiform discharges or seizures seen on the current study. This does not rule out an underlying seizure disorder. Clinical correlation is recommended. cc: MD Placido Duron MD
--- NOTE | 2019-07-08 20:06 | CONSULTATION ---
DATE OF CONSULTATION: 07/08/2019 HISTORY OF PRESENT ILLNESS: The patient is a Génesis Lyone who came from EMS after being found down at home by her mother. She was unresponsive lying face down on the floor in her home. Fingerstick blood glucose was 391 on arrival. Toxicology was positive for amphetamines and benzodiazepines. Head CT did not show acute findings. The patient was admitted and found to be acidotic with diabetic ketoacidosis. This has been dressed since her admission. She has continued to be poorly responsive, lethargic, and agitated at times, even biting per nursing staff. The patient is a Génesis Huerta as there is no family available and no personal identification on the patient. However it is believed that she is Tawnya Collier, 1990, who has a history of diabetes, suicidal ideation, schizoaffective disorder, visual and auditory hallucinations and multiple admissions to [facility]. There is noncompliance and history of drug use, if this is indeed the patient. PAST MEDICAL HISTORY: Uncertain. FAMILY, SOCIAL, HOME MEDICATIONS, ALLERGIES: All unknown. REVIEW OF SYSTEMS: Unable to be assessed due to the patient's mental status. PHYSICAL EXAMINATION: Vital Signs: She has been afebrile during her stay. Her blood pressure was 105/73 initially, current 119/83. Pulse up to 120. Respirations 20, 95% on room air. General: Ms. Génesis Huerta is supine in bed with eyes closed. She is snoring. Mouth is open and appears dry. With repeated loud voice she arouses. She began to moan and move about in bed briefly before drifting back to sleep. With the addition of tactile stimulation, she aroused further, opened her eyes, looked off in the distance and then eventually affixed her gaze briefly onto me. She can track. HEENT: Pupils are 4 to 5 mm with sluggish reaction to bright light. There is full lateral eye movements with passive head turning. She does resist passive eye opening. Corneal responses are present. Face symmetric with equal activation. She coughs. Neurologic: Tone is equal in the limbs. She is seen to spontaneously move all limbs equally. She also briskly grabs a hold of my arm with both hands at one point. I see no obvious focal deficits with regards to strength in the arms or in the legs. Reflexes are trace at the wrists, 1+ bilaterally at the knees, absent at the ankles. There is no clonus. Plantar response is equivocal bilaterally. She responds to noxious stimuli in all extremities equally. No meningismus. DIAGNOSTICS: White count 14 on admission. Normalized the following day. Normal sodium, BUN and creatinine. Blood sugar current low 200s. Calcium 8.5, phosphorus 2.4, magnesium 1.4. AST and ALT 38 and 43. Alkaline phosphatase 160, CK is 1275. Toxicology positive for amphetamines and benzodiazepines. Head CT: No acute finding. Routine EEG: Personally reviewed. Mild to moderate generalized slowing indicative of mild to moderate nonspecific encephalopathy. No epileptiform findings or seizures seen on the current study. This does not rule out an underlying seizure disorder. ASSESSMENT AND PLAN: Global encephalopathy. Uncertain etiology. Suspicion for toxic etiology in the setting of drug overdose. Toxicology was positive for amphetamines and benzodiazepines. There is no meningismus and no fever and current normal white count. Electroencephalogram did not show increased propensity to seizure and did not show subclinical seizure activity. Suggest continuing supportive care as you are doing. Neuro checks. Limit sedating medications as able. Thank you for the consult. cc: Elisabeth Guevara MD [facility]
[2019-07-08] MEDS: LOVENOX SUBQ SCH (20:28)
[2019-07-08] MEDS: TYLENOL PR PRN (23:05)
[2019-07-09] MEDS: D5 1/2 NS 1,000 ML IV SCH ×3 (00:36→18:20)
[2019-07-09] MEDS: HUMULIN R SUBQ SCH ×4 (02:56→20:18)
[2019-07-09 06:19] LABS: BASO# 0.03 X1000 (0.0-0.2); BASO% 0.2 % (0.0-0.8); HEMATOCRIT 42.7 % (37.0-47.0); HEMOGLOBIN 14.5 g/dL (12.0-16.0); IMM GRAN# 0.03 X1000 (0.0-0.04); IMM GRAN% 0.2 % (0.0-0.5); LYMPH# 1.03 X1000 (1.2-3.4); LYMPH% 8.4 % (20.5-51.1); MCH 27.2 PG (27-31); MONO# 0.49 X1000 (0.11-0.59); MPV 12.2 FL (7.4-10.4); NEUT# 10.61 X1000 (1.4-6.5); NEUT% 87.2 % (42.2-75.2); PLT 124 X1000 (130-400); RBC 5.34 XMIL (4.2-5.4); RDW 15.4 % (11.5-14.5); WBC 12.19 X1000 (4.8-10.8)
[2019-07-09 06:45] LABS: AGAP 21; BUN 4 mg/dL (8-22); CHLORIDE 106 mmol/L (98-107); COSMO 281; CREATININE 0.5 mg/dL (0.5-0.9); ESTIMATED GFR > 60; GLUCOSE 221 mg/dL (70-104); MAGNESIUM 1.6 mg/dL (1.5-2.7); PHOSPHORUS 3.7 mg/dL (2.7-4.5); POTASSIUM 4.8 mmol/L (3.5-5.1); SODIUM 139 mmol/L (136-145); TCO2 12 mmol/L (25-35)
[2019-07-09 07:35] LABS: ALLEN TEST YES; BE -12.3 mmoll (-3.0-3.0); BLOOD TYPE ARTERIAL; HCO3-(ACT) 14.8 mmoll (20.0-26.0); METHB 0.8 % (0.0-1.5); O2(CT) 15.9 mL/dL (15.0-23.0); PCO2(98.6) 25 mmHg (35-45); SAMPLE BLOOD; SAO2 82.1 % (95.0-100.0); THB 14.2 g/dL (11.5-17.4)
[2019-07-09 07:37] LABS: MODALITY ROOM AIR; O2HB 79.6 % (95.0-99.0); PO2(98.6) 46 mmHg (60-100)
[2019-07-09] MEDS: ROCEPHIN 2 GM in NS 50 ML IV SCH (07:42)
--- NOTE | 2019-07-09 08:07 | Diag Imaging Result Doc PS360 ---
EXAM: CHEST-PORTABLE HISTORY: Hypoxia. Evaluate for pulm edema/pneumonia. TECHNIQUE: Single view COMPARISON: 07/07/2019 FINDINGS: The lungs are well expanded. The heart is not enlarged. The vessels are not distended. Mild perihilar increased interstitial markings. No effusion identified. IMPRESSION: Patchy perihilar infiltrates Electronically signed by Amado Santamaria 07/09/2019 8:04 AM
[2019-07-09] MEDS ORDERED: VANCOMYCIN IV PER PHARMACY MISC SCH (08:15)
--- NOTE | 2019-07-09 08:31 | EKG Report ---
Test Performed on : 07/09/2019 06:19:37 AM Test Reason : Follow up QTc interval Blood Pressure : / mmHG Vent. Rate : 114 BPM Atrial Rate : 114 BPM P-R Int : 164 ms QRS Dur : 078 ms QT Int : 322 ms P-R-T Axes : 042 077 054 degrees QTc Int : 443 ms Sinus tachycardia. Nonspecific T wave abnormality Abnormal ECG When compared with ECG of 06-JUL-2019 13:48, (Unconfirmed) Nonspecific T wave abnormality, worse in Inferior leads Nonspecific T wave abnormality now evident in Lateral leads Confirmed by Trevin KURTZ, P.J.M ([id number]) on 07/09/2019 7:58:03 PM
[2019-07-09] MEDS: PROTONIX IV SCH (08:39)
[2019-07-09] MEDS: LEVEMIR SUBQ SCH (08:39)
[2019-07-09] MEDS ORDERED: VANCOMYCIN 2,000 MG in NS 500 ML IV ONE (10:00)
[2019-07-09 10:32] LABS: URINE SOURCE CATH
[2019-07-09 10:36] LABS: BILIRUBIN URINE NEGATIVE (NEGATIVE); BLOOD URINE MODERATE (NEGATIVE); COLOR YELLOW; GLUCOSE URINE >1000 mg/dL (NEGATIVE); KETONE URINE >150 mg/dL (NEGATIVE); LEUKOCYTES URINE MODERATE (NEGATIVE); NITRITE URINE NEGATIVE (NEGATIVE); PROTEIN URINE 100 mg/dL (NEGATIVE); SP GRAVITY URINE 1.036; TURBIDITY URINE HAZY (CLEAR); UROBILINOGEN URINE NORMAL (NORMAL)
[2019-07-09 10:47] LABS: UR EPITHELIAL CELLS <10 /HPF (<10); URINE BACTERIA 1+ /HPF; URINE RBC TNTC /HPF (<10); URINE WBC TNTC /HPF (<10)
--- NOTE | 2019-07-09 11:05 | PROGRESS NOTE ---
DATE: 07/09/2019 LOCATION: ICU bed 1. INTERVAL HISTORY: The patient had a low-grade fever up to 100.8 degrees Fahrenheit yesterday. She has been tachycardic with pulse in 119s, and she has also been hypoxic. She had leukocytosis of 12,000. I evaluated her at bedside. She is agitated, she is fidgety, and is requiring restraints. She is also appearing very tachypneic. I had a discussion with the nurse about starting her on oxygen therapy, getting an ABG, chest x-ray, urinalysis, and starting her on antibiotics. She is not coherent to participate in clinical examination currently. OBJECTIVE: Vital Signs: Temperature 97.4 degrees, pulse 111, respiratory rate 33, blood pressure 125/83, saturating 100% on nonrebreather at the moment, on room air, her saturations were 83. General: Physical examination is extremely limited as she is constantly fidgeting inside the bed, and is not able to participate in physical examination, so my examination was limited. Lungs: I could not appreciate any obvious wheezes or crackles on examination. Heart: S1, S2 normal. Tachycardic. No murmur or gallop. Abdomen: Soft, nontender. Extremities: No lower extremity edema. Genitourinary: She has a urine catheter. Neurologic: She is in 4-point restraints. LABORATORY DATA: Labs suggestive of leukocytosis. Normal hemoglobin. Thrombocytopenia. On the lab examination, she also has acidosis with pH of 7.3, her pCO2 is 25, bicarbonate of 14. She also has elevated anion gap. Her kidney function is normal. Her sugars are in rather acceptable range. Her lactate on admission was unremarkable. MICROBIOLOGY: No positive data so far. IMAGING: Chest x-ray suggests patchy perihilar infiltrates. Electrocardiogram on admission had sinus tachycardia. ASSESSMENT AND PLAN: 1. Acute encephalopathy, likely toxic, metabolic, related to recreational substance abuse. Electroencephalogram did not have any definite epileptiform discharge. Her head CT was unremarkable for any acute pathology. Neurology team on board. Appreciate recommendation if she would need lumbar puncture in the future if she does not improve, for cerebrospinal fluid analysis. 2. Diabetic ketoacidosis on presentation with history of type 1 diabetes mellitus, though I do not have any information about previous medications definitively. Currently, her blood sugars are in acceptable range. I will continue her on D5-containing intravenous fluids, as well as basal bolus insulin regimen subcutaneously. 3. Acute hypoxic respiratory failure and sepsis, likely due to multifocal pneumonia. I will start her on oxygen therapy. I will get urine antigens. I will start her on intravenous vancomycin and ceftriaxone, and will repeat ABG as well as lactate. 4. Elevated anion gap metabolic acidosis. It could be related to lactic acidosis because of hypoxia. However, the lactate is pending. It has appropriate respiratory compensation. There is also a slight degree of non-anion gap metabolic acidosis. 5. Disposition. Her condition is critical. More than 30 minutes of critical care time were spent taking care of this patient. There are no family contacts available. I have requested Business Project Manager to get me a family contact so that I can update. Plan of care discussed with nursing team. cc: Placido Garcia MD
[2019-07-09 11:23] LABS: URINE YEAST PRESENT
[2019-07-09 11:24] LABS: URINE CASTS NONE SEEN; URINE CRYSTALS NONE SEEN
[2019-07-09] MEDS ORDERED: STERILE WATER INJ. INJ PRN (15:45)
[2019-07-09] MEDS: ZYPREXA IM PRN ×2 (16:10→22:36)
[2019-07-09 17:08] LABS: AGAP 18; BUN 4 mg/dL (8-22); CALCIUM 9.2 mg/dL (8.8-10.2); CHLORIDE 110 mmol/L (98-107); COSMO 290; CREATININE 0.5 mg/dL (0.5-0.9); ESTIMATED GFR > 60; GLUCOSE 205 mg/dL (70-104); POTASSIUM 3.6 mmol/L (3.5-5.1); SODIUM 144 mmol/L (136-145); TCO2 16 mmol/L (25-35)
[2019-07-09 17:09] LABS: ALLEN TEST NO; BE -8.8 mmoll (-3.0-3.0); BLOOD TYPE ARTERIAL; HCO3-(ACT) 17.9 mmoll (20.0-26.0); METHB 0.8 % (0.0-1.5); O2(CT) 17.4 mL/dL (15.0-23.0); O2HB 92.7 % (95.0-99.0); PCO2(98.6) 29 mmHg (35-45); PO2(98.6) 69 mmHg (60-100); SAMPLE BLOOD; SAO2 95.3 % (95.0-100.0); THB 13.3 g/dL (11.5-17.4); pH(98.6) 7.34 (7.35-7.45)
[2019-07-09 17:10] LABS: MODALITY NRB
[2019-07-09] MEDS: ATIVAN IV PRN ×2 (18:47→22:15)
--- NOTE | 2019-07-09 20:54 | PROGRESS NOTE ---
DATE: 07/09/2019 SUBJECTIVE: This patient is being managed as a Génesis Huerta. There may be some good evidence that her identity is known, but I am not certain about that at this time. Dr. Guevara saw her for Neurology evaluation yesterday. Today, she is restrained at the wrists, moving all limbs vigorously, moaning and groaning, but not speaking. She did not speak to me. She did not follow commands. She did not communicate with me in any way. There is good lateral eye movement with passive head turning and there is spontaneous conjugate, full horizontal eye movement. Neck is supple. Limb tone is symmetric. IMPRESSION: Global encephalopathy, likely toxic etiology. I believe that she may be slightly improved clinically today compared to yesterday, but I do not think there has been a major change. She has had workup including CT and EEG which show nothing remarkable. No new suggestion from Neurology standpoint. Would continue current support. Thanks for asking us to see Ms. Huerta. cc: MD JUDITH Wayne III
[2019-07-09] MEDS: VANCOMYCIN 1,500 MG in NS 250 ML IV SCH (22:14)
[2019-07-09] MEDS: LOVENOX SUBQ SCH (22:14)
[2019-07-10] MEDS: ATIVAN IV PRN ×4 (03:23→11:58)
[2019-07-10] MEDS: HUMULIN R SUBQ SCH ×4 (03:23→19:39)
[2019-07-10 04:35] LABS: ALLEN TEST YES; BE -11.3 mmoll (-3.0-3.0); BLOOD TYPE ARTERIAL; METHB 0.9 % (0.0-1.5); O2(CT) 17.5 mL/dL (15.0-23.0); O2HB 92.3 % (95.0-99.0); PCO2(98.6) 30 mmHg (35-45); PO2(98.6) 67 mmHg (60-100); SAMPLE BLOOD; SAO2 94.8 % (95.0-100.0); THB 13.5 g/dL (11.5-17.4); pH(98.6) 7.28 (7.35-7.45)
[2019-07-10 04:37] LABS: MODALITY NRB
[2019-07-10 05:35] LABS: BASO# 0.01 X1000 (0.0-0.2); BASO% 0.1 % (0.0-0.8); EOS# 0.01 X1000 (0.0-0.7); EOS% 0.1 % (0.0-10.0); HEMATOCRIT 39.4 % (37.0-47.0); IMM GRAN# 0.04 X1000 (0.0-0.04); IMM GRAN% 0.4 % (0.0-0.5); LYMPH# 0.84 X1000 (1.2-3.4); LYMPH% 8.4 % (20.5-51.1); MCH 26.2 PG (27-31); MCV 79.3 FL (81-99); MONO# 0.55 X1000 (0.11-0.59); MONO% 5.5 % (1.7-9.3); MPV 12.5 FL (7.4-10.4); NEUT# 8.54 X1000 (1.4-6.5); NEUT% 85.5 % (42.2-75.2); PLT 116 X1000 (130-400); RBC 4.97 XMIL (4.2-5.4); WBC 9.99 X1000 (4.8-10.8)
[2019-07-10] MEDS: ROCEPHIN 2 GM in NS 50 ML IV SCH (06:03)
[2019-07-10 06:09] LABS: LYMPHS 14 % (21-51); SEGS 84 % (42-75)
[2019-07-10 06:10] LABS: ESTIMATED GFR > 60
[2019-07-10 06:15] LABS: AGAP 21; BUN 5 mg/dL (8-22); CALCIUM 9.3 mg/dL (8.8-10.2); CHLORIDE 107 mmol/L (98-107); COSMO 283; CREATININE 0.5 mg/dL (0.5-0.9); GLUCOSE 211 mg/dL (70-104); POTASSIUM 3.7 mmol/L (3.5-5.1); SODIUM 140 mmol/L (136-145); TCO2 12 mmol/L (25-35)
[2019-07-10] MEDS ORDERED: DUONEB (A & A) INH SCH (07:30)
--- NOTE | 2019-07-10 07:43 | Diag Imaging Result Doc PS360 ---
EXAM: CHEST-PORTABLE 07/10/2019 HISTORY: Dyspnea. Evaluate for pneumonia TECHNIQUE: AP portable upright at 0734 COMMENT: The inspiration is less optimal than on 07/09/2019. There is alveolar and interstitial opacity bilaterally consistent with pulmonary edema. The possibility of pneumonia cannot be excluded. IMPRESSION: Pulmonary edema and/or pneumonia. Electronically signed by Brian Clarke 07/10/2019 7:41 AM
[2019-07-10] MEDS ORDERED: NS NEB INH SCH (08:00)
[2019-07-10] MEDS ORDERED: LOVENOX SUBQ SCH (08:00)
[2019-07-10] MEDS ORDERED: LASIX IV ONE (08:00)
[2019-07-10] MEDS ORDERED: NICODERM PATCH TD PRN (08:08)
[2019-07-10] MEDS: XOPENEX NEB INH SCH ×5 (08:15→23:16)
[2019-07-10] MEDS: ATROVENT NEB INH SCH ×5 (08:15→23:16)
[2019-07-10] MEDS: ZOSYN 3.375 GM in NS 50 ML IV SCH ×3 (08:43→19:29)
[2019-07-10] MEDS: PROTONIX IV SCH (08:44)
[2019-07-10] MEDS: LEVEMIR SUBQ SCH (08:45)
[2019-07-10] MEDS: SODIUM CHLORIDE 0.9% INJ SCH (08:50)
[2019-07-10] MEDS: MORPHINE IV PRN ×4 (08:51→22:15)
[2019-07-10] MEDS: VANCOMYCIN 1,500 MG in NS 250 ML IV SCH ×2 (11:12→21:48)
[2019-07-10] MEDS: ZYPREXA IM PRN (12:33)
[2019-07-10 12:41] LABS: ALLEN TEST NO; BE -13.9 mmoll (-3.0-3.0); BLOOD TYPE ARTERIAL; HCO3-(ACT) 13.8 mmoll (20.0-26.0); O2(CT) 18.6 mL/dL (15.0-23.0); PCO2(98.6) 38 mmHg (35-45); PO2(98.6) 59 mmHg (60-100); SAMPLE BLOOD; SAO2 90.3 % (95.0-100.0); THB 15.1 g/dL (11.5-17.4)
[2019-07-10 12:43] LABS: MODALITY NRB
[2019-07-10 12:46] LABS: O2HB 87.9 % (95.0-99.0); pH(98.6) 7.17 (7.35-7.45)
[2019-07-10] MEDS ORDERED: DIPRIVAN 1% ONE ×2 (13:34→13:51)
[2019-07-10] MEDS ORDERED: SODIUM CHLORIDE 0.9% 10 ML ONE (13:35)
[2019-07-10] MEDS ORDERED: DIPRIVAN 1% 1,000 MG/100 ML BOTTLE IV SCH (13:45)
[2019-07-10] MEDS ORDERED: QUELICIN (DOSE) ONE (13:48)
[2019-07-10] MEDS ORDERED: DIPRIVAN 1% 1,000 MG/100 ML BOTTLE ONE ×4 (13:53→23:21)
[2019-07-10 14:27] LABS: ALLEN TEST YES; BLOOD TYPE ARTERIAL; HCO3-(ACT) 13.2 mmoll (20.0-26.0); METHB 0.8 % (0.0-1.5); O2(CT) 19.2 mL/dL (15.0-23.0); O2HB 95.6 % (95.0-99.0); PCO2(98.6) 33 mmHg (35-45); PO2(98.6) 99 mmHg (60-100); SAMPLE BLOOD; SAO2 98.2 % (95.0-100.0); SRATE 12 BPM; THB 14.2 g/dL (11.5-17.4); TVOL 500 mL
[2019-07-10 14:29] LABS: pH(98.6) 7.18 (7.35-7.45)
[2019-07-10 14:30] LABS: MODALITY VENTILATOR
--- NOTE | 2019-07-10 17:16 | Diag Imaging Result Doc PS360 ---
EXAM: CHEST-PORTABLE HISTORY: Tube placement TECHNIQUE: Single view COMPARISON: None. FINDINGS: Endotracheal tube in good position. The tip is located 4 to 5 cm above the arielle. The lungs are well expanded. The heart is not enlarged. The vessels are not distended. No consolidation. No effusion identified. IMPRESSION: Endotracheal tube in good position Electronically signed by Amado Santamaria 07/10/2019 5:13 PM
[2019-07-10] MEDS: SODIUM BICARBONATE 8.4% 150 MEQ in D5W 1,000 ML IV SCH (19:29)
[2019-07-10] MEDS: DIPRIVAN 1% 1,000 MG/100 ML BOTTLE IV SCH ×2 (21:19→23:28)
[2019-07-11] MEDS: ZOSYN 3.375 GM in NS 50 ML IV SCH (01:21)
[2019-07-11] MEDS: HUMULIN R SUBQ SCH ×6 (01:58→23:49)
[2019-07-11] MEDS ORDERED: DIPRIVAN 1% 1,000 MG/100 ML BOTTLE ONE ×5 (02:24→13:50)
[2019-07-11] MEDS: ATROVENT NEB INH SCH ×6 (02:40→23:29)
[2019-07-11] MEDS: XOPENEX NEB INH SCH ×6 (02:41→23:29)
[2019-07-11] MEDS: MORPHINE IV PRN ×6 (02:58→23:29)
[2019-07-11 04:26] LABS: ALLEN TEST YES; BE -5.3 mmoll (-3.0-3.0); BLOOD TYPE ARTERIAL; HCO3-(ACT) 20.8 mmoll (20.0-26.0); METHB 0.1 % (0.0-1.5); O2(CT) 15.8 mL/dL (15.0-23.0); O2HB 95.5 % (95.0-99.0); PCO2(98.6) 32 mmHg (35-45); PO2(98.6) 77 mmHg (60-100); SAMPLE BLOOD; SAO2 99.8 % (95.0-100.0); SRATE 12 BPM; THB 11.7 g/dL (11.5-17.4); TVOL 500 mL; pH(98.6) 7.38 (7.35-7.45)
[2019-07-11 04:28] LABS: MODALITY VENTILATOR
[2019-07-11] MEDS: DIPRIVAN 1% 1,000 MG/100 ML BOTTLE IV SCH ×5 (04:56→20:54)
[2019-07-11] MEDS: LOVENOX SUBQ SCH (05:01)
[2019-07-11 05:46] LABS: BASO# 0.02 X1000 (0.0-0.2); BASO% 0.2 % (0.0-0.8); EOS# 0.14 X1000 (0.0-0.7); EOS% 1.5 % (0.0-10.0); HEMOGLOBIN 12.3 g/dL (12.0-16.0); IMM GRAN# 0.04 X1000 (0.0-0.04); IMM GRAN% 0.4 % (0.0-0.5); LYMPH# 1.29 X1000 (1.2-3.4); LYMPH% 13.6 % (20.5-51.1); MCHC 34.2 g/dL (33-37); MCV 78.9 FL (81-99); MONO# 0.55 X1000 (0.11-0.59); MONO% 5.8 % (1.7-9.3); MPV 12.4 FL (7.4-10.4); NEUT# 7.43 X1000 (1.4-6.5); NEUT% 78.5 % (42.2-75.2); PLT 155 X1000 (130-400); RBC 4.56 XMIL (4.2-5.4); RDW 15.4 % (11.5-14.5); WBC 9.47 X1000 (4.8-10.8)
[2019-07-11 06:22] LABS: CALCIUM 9.7 mg/dL (8.8-10.2); CREATININE 1.6 mg/dL (0.5-0.9); POTASSIUM 2.8 mmol/L (3.5-5.1)
[2019-07-11] MEDS ORDERED: INSULIN PEN NEEDLES ONE (08:29)
[2019-07-11] MEDS: PROTONIX IV SCH (08:33)
[2019-07-11] MEDS: LEVEMIR SUBQ SCH (08:34)
[2019-07-11] MEDS: POTASSIUM CHLORIDE 20 MEQ/SWI 20 MEQ/100 ML IVPB IV SCH ×2 (08:50→10:30)
[2019-07-11] MEDS: ZOSYN 2.25 GM in NS 50 ML IV SCH ×3 (09:35→20:08)
--- NOTE | 2019-07-11 10:10 | CONSULTATION ---
DATE OF CONSULTATION: 07/10/2019 REQUESTING PROVIDER: Placido Garcia MD. REASON FOR CONSULTATION: Acute hypoxic respiratory failure. HISTORY OF PRESENT ILLNESS: This is a 28-year-old female with a medical history of diabetes, hypothyroidism, schizoaffective with bipolar disorder, history of suicidal ideations, hallucinations, insomnia and medical noncompliance. The patient presented to the ER via EMS on 07/06/2019 after the patient's mother found her unresponsive, facing down in the house. Initial workup in the ER revealed presumed overdose of unknown drugs and diabetic ketoacidosis. Her drug screen showing positive for amphetamines and benzodiazepines with moderate acetone levels. She has been admitted to the ICU for further evaluation and management. During her hospital stay, she apparently remains confused and combative. Since yesterday morning, her respiratory status has been declining and the chest x-ray showed mild perihilar increased interstitial markings. She currently is lying in bed and restless. She has four-point restraints. She is on 100% non-rebreather with respiratory rate up to 40s and SaO2 from 60s to 90s. Her pulse rate stayed in the 140s. Nurse at the bedside reported she has been having tachypnea and tachycardia since yesterday and being desaturated since last night. Nurse gives her both Ativan and morphine around the clock, and is planning to give her 5 mg olanzapine. STAT ABG reveals metabolic acidosis with pO2 59 and oxyhemoglobin 87.9. So we order to intubate her per anesthesia. During the procedure, a [id number] brown solid stuff is found and removed from the back of patient's throat. After intubation, patient is put on diprivan drip. There is no family at the bedside. All other information is obtained from the E-chart. PAST MEDICAL HISTORY: 1. Diabetes. 2. Hyperthyroidism. 3. Schizoaffective with bipolar disorder. 4. History of suicidal ideations. 5. Auditory and visual hallucinations. 6. Insomnia. 7. Medical noncompliance. PAST SURGICAL HISTORY: Unknown. SOCIAL HISTORY: Unknown. FAMILY HISTORY: Unknown. REVIEW OF SYSTEMS: Unable to be obtained. PHYSICAL EXAMINATION: Vital Signs: Temperature 98.4 degrees, blood pressure 137/81, pulse 141, respiratory rate 44, oxygen saturation between 87 to 92 percent on 100% non- rebreather. General: Very restless and combative, lying in bed with eyes closed. She has 4-point restraints. HEENT: Normocephalic. Trachea midline. Mucosa pink and moderate dry. Respiratory: Labored, increased work of breathing with some accessory muscle use. Tachypnea. Auscultation revealed early inspiratory crackles bilaterally with left side worse than the right side. Cardiovascular: Regular rate and rhythm with sinus tachycardia. Gastrointestinal: Soft, flat. Normoactive bowel sounds in all 4 quadrants. Extremities: No pedal edema. No cyanosis. No clubbing. Dorsalis pedis 2+ bilaterally. Neurologic: confused, combative, not following any simple commands. LAB DATA: White blood cell 9.99, hemoglobin 13.0, hematocrit 39.4, platelet 116,000. Sodium 140, potassium 3.7, chloride 107, carbon dioxide 12, BUN 5, creatinine 0.5. Glucose 211. ABG: pH 7.17, pCO2 of 38, PO2 of 59, HCO3 is 14.8, base excess -14.9, oxyhemoglobin 87.9 on non-rebreather with FiO2 100%. IMAGING DATA: Chest x-ray this morning showing the pulmonary edema plus/minus pneumonia bilaterally. ASSESSMENT: This is a 28-year-old female with a medical history of diabetes mellitus, hypothyroidism, schizoaffective with bipolar disorder, history of suicidal ideations, auditory and visual hallucinations, insomnia, and medical noncompliance. She has been admitted since 07/06/2019 with polysubstance abuse, diabetes ketoacidosis, and acute encephalopathy. She later develops multilobar pneumonia, acute hypoxic respiratory failure and possible sepsis. 1. Acute hypoxic respiratory failure, worsening and requires intubation. 2. Pulmonary edema plus/minus pneumonia bilaterally. 3. Sepsis, likely secondary to pneumonia. 4. Acute encephalopathy, likely toxic metabolic related to recreational substance abuse. 5. Polysubstance abuse. 6. Metabolic acidosis. PLAN: 1. Continue AC mechanical ventilation and Diprivan sedation. 2. Continue diuretic as needed; continue antibiotics and bronchodilators. 3. Follow up with CBC, BMP, ABG, urine culture, blood culture, and chest x-ray. 4. Continue GI and DVT prophylaxis. 5. Further recommendations pending hospital course. Thank you for the courtesy of this consult. Dictated by RASHAD Peñaloza for Zaira Oh MD cc: RASHAD Peñaloza MD [facility]ITALRashard
--- NOTE | 2019-07-11 10:13 | PROGRESS NOTE ---
DATE: 07/10/2019 INTERVAL HISTORY: Overnight, no acute events. SUBJECTIVE: In the morning time when I saw her, she was desaturating on a nonrebreather mask. She was extremely agitated. She was tachycardic. She kept on fidgeting inside the bed. We had to give her additional Ativan, nebulization treatment, and Lasix. She is not able to participate in clinical encounter meaningfully. VITALS: Currently, she has been afebrile, though she did have a fever of 100.6 the day before yesterday. Her pulse has been 140, respiratory rate 30s to 40s, normotensive. She is saturating anywhere between 88 to 94 percent on a nonrebreather mask. PHYSICAL EXAMINATION: Oral cavity is dry. Pupils are dilated, bilaterally equal. She resists examination. She does have increased crackles and rhonchi in bilateral lung taylor. Cardiovascular: S1, S2 normal. Tachycardic, regular. No murmur, rub, or gallop. Abdomen: Soft, nontender. She has a urine catheter. No lower extremity edema. She is constantly agitated and moving in the bed so a proper neurological examination could not be performed, whether she has clonus or not. LABS: WBC is essentially unremarkable except thrombocytopenia. She does have elevated D-dimer. Her ABG suggests metabolic acidosis. BMP is unremarkable except mild hyperglycemia. Lactate was normal. MICROBIOLOGY: Urine culture was growing yeast. IMAGING: Chest x-ray yesterday morning suggested pulmonary edema and/or pneumonia. ASSESSMENT AND PLAN: 1. Acute encephalopathy, likely toxic, related to recreational substance abuse. Other differential also includes serotonin syndrome considering the history that the mother provided to me today on the phone that the patient may have taken many tablets of buspirone, Prozac, and Zyprexa. She has not had fever. She does not have any abnormality on CAT scan of the head. I will continue to manage her with supportive care. 2. Acute hypoxic respiratory failure and sepsis, likely in the setting of bilateral aspiration pneumonia. I will give her intravenous Lasix one time. Hold intravenous fluids. Start her on broad-spectrum antibiotic including intravenous vancomycin and intravenous Zosyn. I will also follow up with blood culture, urine antigen. Appreciate pulmonology recommendation. 3. Diabetic ketoacidosis with a history of type 1 diabetes mellitus. Her blood sugars have been in acceptable range, though she does have an elevated anion gap metabolic acidosis. The source of that is unclear at the moment. 4. Elevated D-dimer. Usually, she is functional and does not have any limitation in terms of physical activity, so the likelihood of pulmonary embolism is low. I am giving her a higher dose of enoxaparin in the morning time until I get the ultrasound of the bilateral lower extremities. 5. Disposition. Her condition is critical. More than 30 minutes of critical care time were spent in taking of this patient. I called the patient's mother, informed her about the patient's critical condition, and all of her questions have been answered. cc: Placido Garcia MD
--- NOTE | 2019-07-11 10:15 | PROGRESS NOTE ---
DATE: 07/10/2019 ADDENDUM: I had an extensive discussion with the patient's mother. Apparently, patient may have ingested buspirone, Paxil and Zyprexa when she was found not really responding well at home by the mother. Overnight, she has had hypoxia. Her ABG suggests very high anion gap and elevated D- dimer for which I am going to give her a one time therapeutic Lovenox until I get the ultrasound of the lower extremities. The patient is not responding and extremely agitated. VITALS: Temperature of 98.4 degrees, pulse 140, and respiratory rate 42. She was saturating anywhere between 88 to 92 percent on 100% non-rebreather. PHYSICAL EXAMINATION: Very very agitated. Bilateral crackles and rhonchi. Fidgety. I could not assess clonus. Her pupils are dilated. She is moaning and tossing in the bed. LABORATORY: ABG in the morning time had pH of 7.28, PO2 of 67 suggestive of metabolic acidosis. ASSESSMENT AND PLAN: 1. Acute toxic encephalopathy. Differential includes recreational substance abuse, over intentional versus accidental over medications with psychiatric medications, serotonin syndrome. 2. Diabetic ketoacidosis on presentation. 3. Elevated anion gap metabolic acidosis. 4. Acute hypoxic respiratory failure due to pulmonary edema and bilateral pneumonia, likely aspiration. PLAN: Her condition is critical. Increase antibiotic coverage, give her additional Lasix and bronchodilators. She is at risk of impending intubation. I updated the patient's mother about it on the phone and she understands. cc: Placido Garcia MD
--- NOTE | 2019-07-11 11:06 | Diag Imaging Result Doc PS360 ---
EXAM: CHEST-1 VIEW HISTORY: SOB TECHNIQUE: Single view COMPARISON: 07/10/2019 FINDINGS: Endotracheal tube remains in good position. Lungs are well expanded. No cardiomegaly. There are patchy infiltrates. No pleural effusions identified. IMPRESSION: Patchy infiltrates Electronically signed by Amado Santamaria 07/11/2019 10:55 AM
[2019-07-11] MEDS ORDERED: MORPHINE ONE (11:27)
--- NOTE | 2019-07-11 12:44 | PROGRESS NOTE ---
DATE: 07/11/2019 INTERVAL HISTORY: No acute events overnight. The patient was intubated. She did have a drop in her creatinine. She was started on intravenous fluids. Her vancomycin currently has been discontinued. I advised the nurse to start her on tube feeds. VITALS: She has been afebrile. Temperature of 98.8 degrees, pulse of 97, respiratory 24, and blood pressure 115/64. She is saturating 97% on current ventilator settings. She did not really have hypotensive episode except a few readings of 88/57 at the time of intubation, though her MAPs were within acceptable range. Urine output is 2.8 L so far. LABORATORY: CBC shows no leukocytosis. Stable hemoglobin. Stable platelet count. ABG suggestive of resolution of metabolic acidosis. Hypokalemia currently being repleted. She does have increase in BUN and creatinine. MICROBIOLOGY: No positive data so far. IMAGING: No chest x-ray has been performed yet. ASSESSMENT AND PLAN: 1. Acute hypoxic respiratory failure due to bilateral pneumonia, likely aspiration. There was a large chunk of unidentifiable material obtained at the time of intubation, which was in her pharynx or trachea which could be a tobacco product or something else. I will continue ventilatory support and propofol for sedation as per Pulmonology recommendation. Continue intravenous Zosyn. Vancomycin had been stopped due to acute kidney injury. I will follow up with sputum culture results. 2. Acute toxic encephalopathy likely related to recreational substance abuse as U tox was positive for amphetamine. Serotonin syndrome is also a possibility. Her head CT and EEG were largely unremarkable. Continue to monitor supportively. 3. Acute kidney injury could be related to hypotension sustained after mechanical ventilation was initiated or related to vancomycin use. Follow up urine electrolytes. Continue gentle intravenous fluid resuscitation and stop vancomycin. 4. Elevated anion gap metabolic acidosis on presentation, treated as diabetic ketoacidosis, Continue gentle bicarbonate fluids. 5. Monitor serial BMP as well as ABG. DISPOSITION: I will continue to monitor patient in ICU. Her condition is critical. I will keep patient's mother informed. All of her questions will be answered. Addendum: I updated patient's mother at bedside about her critical condition and answered all of her questions. cc: MD JUDITH Serna
--- NOTE | 2019-07-11 15:29 | Diag Imaging Result Doc PS360 ---
EXAM: CHEST-PORTABLE INDICATION: NG placement TECHNIQUE: One view COMPARISON: 07/11/2019 FINDINGS: The newly placed NG tube projects well below the diaphragm and is assumed to be in the lumen of the stomach in the expected position. The ET tube is stable. Although the lungs are overpenetrated due to focus on the NG tube, the chest appears to be approximately stable as compared to the previous study. IMPRESSION: Interval placement of NG tube in the expected position as described. Electronically signed by Mahendra Jin 07/11/2019 3:26 PM
[2019-07-11 16:05] LABS: UR CREAT RANDOM 184.2 mg/dL (11-20)
--- NOTE | 2019-07-11 16:37 | PROGRESS NOTE ---
DATE: 07/11/2019 SUBJECTIVE/PLAN: Ms. Collier has been intubated, now mechanically ventilated, heavily sedated with propofol. I do not have any new thoughts or new suggestions from a neurology standpoint. This appears to be a toxic encephalopathy, probably multiple agents. Can reassess further when propofol stopped. Thanks for asking Neurology to see her. cc: MD JUDITH Wayne III
[2019-07-11 17:04] LABS: CALCIUM 9.1 mg/dL (8.8-10.2); CREATININE 1.4 mg/dL (0.5-0.9); POTASSIUM 3.1 mmol/L (3.5-5.1)
[2019-07-11] MEDS: ATIVAN IV PRN ×2 (17:20→23:28)
[2019-07-11] MEDS ORDERED: POTASSIUM CHLORIDE 20% LIQUID NG ONE (17:45)
[2019-07-11] MEDS: SODIUM BICARBONATE 8.4% 150 MEQ in D5W 1,000 ML IV SCH (18:12)
--- NOTE | 2019-07-11 21:50 | Extremity Venous Study ---
PROCEDURE NAME: Venous U/S Bilateral Legs - 07/10/2019 REQUESTING PHYSICIAN: Dr. Garcia. CREDIT CONTROL MANAGER: Tiffanie. INDICATION: Respiratory distress. EQUIPMENT: [employer] Vivid E9 ultrasound system with a 9L-D transducer. FINDINGS: Images of bilateral lower extremity venous systems were obtained in both sagittal and transverse planes. Doppler was used to evaluate veins for spontaneity, phasicity, respiratory excursion, and digital augmentation. RESULTS: The patient is somewhat uncooperative in restraint which limits the ability of the study, but there is no obvious superficial or deep venous thrombosis noted. There appears to be normal venous flow. Normal venous compression. INTERPRETATION: Essentially normal bilateral lower extremity venous study. The patient was uncooperative which may limit the interpretive ability of this study. cc: MD Placido ePres MD
[2019-07-11] MEDS: HALDOL IV PRN (21:52)
[2019-07-12] MEDS: DIPRIVAN 1% 1,000 MG/100 ML BOTTLE IV SCH ×6 (00:02→18:04)
--- NOTE | 2019-07-12 00:21 | PULMONOLOGY PROGRESS NOTE ---
DATE: 07/11/2019 SUBJECTIVE: The patient is on mechanical ventilation. She is inadequately sedated with the propofol. She is squirming in the bed and reaching for her endotracheal tube. OBJECTIVE: Vital Signs: The patient has been afebrile for the last 24 hours. Blood pressure 125/76, heart rate 101, respiratory rate 25, oxygen saturation 100% on 50% FiO2. HEENT: Pupils are equal and reactive. Oropharynx appears clear but difficult to evaluate with endotracheal tube in place. Neck: Supple. Chest: Reveals diffuse rhonchi bilaterally. Cardiac: Increased rate. Regular rhythm. Abdomen: Soft. Extremities: Without edema. LABORATORIES: Chest x-ray reveals bilateral pulmonary infiltrates. Sputum culture is pending, white blood count 9.47, hemoglobin 12.3, platelet count 155,000. Arterial blood gas reveals a pH 7.38, pCO2 of 32, PO2 of 77. Sodium 142, potassium 3.1, chloride 105, bicarbonate 21, BUN 23, creatinine 1.4, glucose 231. IMPRESSION: A 28-year-old with: 1. Acute hypoxemic respiratory failure. 2. Benzodiazepine use and methamphetamine use. 3. Bilateral pneumonia. 4. Bipolar disorder. 5. Diabetes mellitus. PLAN: 1. Continue antibiotics for pneumonia. We will adjust antibiotics pending results of sputum cultures. 2. Continue full ventilatory support. 3. Continue DVT prophylaxis. 4. Agree with tube feeds. 5. Daily weaning trials. TIME: Spent in critical care management, 30+ minutes. cc: Efraín Donato MD
[2019-07-12] MEDS: ZOSYN 2.25 GM in NS 50 ML IV SCH ×4 (02:22→20:44)
[2019-07-12] MEDS: HUMULIN R SUBQ SCH ×6 (02:22→22:18)
[2019-07-12] MEDS: XOPENEX NEB INH SCH ×6 (02:53→23:36)
[2019-07-12] MEDS: ATROVENT NEB INH SCH ×6 (02:53→23:36)
[2019-07-12 04:39] LABS: ALLEN TEST YES; BE -0.5 mmoll (-3.0-3.0); BLOOD TYPE ARTERIAL; HCO3-(ACT) 24.5 mmoll (20.0-26.0); METHB 1.4 % (0.0-1.5); MODALITY VENTILATOR; O2(CT) 16.9 mL/dL (15.0-23.0); O2HB 96.3 % (95.0-99.0); PCO2(98.6) 43 mmHg (35-45); PO2(98.6) 178 mmHg (60-100); SAMPLE BLOOD; SAO2 99.3 % (95.0-100.0); SRATE 12 BPM; THB 12.2 g/dL (11.5-17.4); TVOL 500 mL; pH(98.6) 7.37 (7.35-7.45)
[2019-07-12 05:12] LABS: BASO# 0.02 X1000 (0.0-0.2); BASO% 0.3 % (0.0-0.8); EOS# 0.33 X1000 (0.0-0.7); EOS% 5.2 % (0.0-10.0); HEMATOCRIT 35.3 % (37.0-47.0); HEMOGLOBIN 11.8 g/dL (12.0-16.0); IMM GRAN# 0.04 X1000 (0.0-0.04); IMM GRAN% 0.6 % (0.0-0.5); LYMPH# 1.47 X1000 (1.2-3.4); LYMPH% 23.2 % (20.5-51.1); MCH 26.8 PG (27-31); MCHC 33.4 g/dL (33-37); MCV 80.2 FL (81-99); MONO# 0.46 X1000 (0.11-0.59); MONO% 7.3 % (1.7-9.3); MPV 11.6 FL (7.4-10.4); NEUT# 4.01 X1000 (1.4-6.5); NEUT% 63.4 % (42.2-75.2); PLT 147 X1000 (130-400); RDW 15.5 % (11.5-14.5); WBC 6.33 X1000 (4.8-10.8)
[2019-07-12 05:53] LABS: ALB/GLOB RATIO 1.1; CALCIUM 9.3 mg/dL (8.8-10.2); CREATININE 1.4 mg/dL (0.5-0.9); MAGNESIUM 1.7 mg/dL (1.5-2.7); PHOSPHORUS 2.9 mg/dL (2.7-4.5); POTASSIUM 2.8 mmol/L (3.5-5.1); PREALBUMIN 7.5 mg/dL (20-40); TOTAL BILIRUBIN 0.44 mg/dL (0.20-1.00); TOTAL PROTEIN 5.7 g/dL (6.3-8.3)
[2019-07-12 06:09] LABS: CALCIUM 9.4 mg/dL (8.8-10.2); CREATININE 1.4 mg/dL (0.5-0.9); POTASSIUM 2.6 mmol/L (3.5-5.1)
[2019-07-12] MEDS: ATIVAN IV PRN ×2 (06:24→18:46)
[2019-07-12] MEDS: LOVENOX SUBQ SCH (06:24)
[2019-07-12] MEDS: MORPHINE IV PRN ×2 (06:24→18:46)
[2019-07-12] MEDS: POTASSIUM CHLORIDE 20% LIQUID NG SCH ×2 (07:34→11:16)
[2019-07-12] MEDS: MAGNESIUM SULFATE 2 GM/S.W.I. 2 GM/50 ML IVPB IV SCH ×2 (07:36→10:14)
[2019-07-12] MEDS ORDERED: NS 1,000 ML IV SCH (07:45)
--- NOTE | 2019-07-12 07:52 | Diag Imaging Result Doc PS360 ---
EXAM: CHEST-1 VIEW INDICATION: SOB TECHNIQUE: One view COMPARISON: 07/11/2019 FINDINGS: Support tubes and lines are in stable positions. Bilateral mild diffuse infiltrates are grossly unchanged. Consider edema. No new consolidation is identified. Cardiac silhouette is stable. IMPRESSION: Stable chest. Electronically signed by Mahendra Jni 07/12/2019 7:50 AM
[2019-07-12] MEDS: NEXIUM PACKET NG SCH (08:17)
[2019-07-12] MEDS: MIRALAX NG SCH (08:17)
[2019-07-12] MEDS: DULCOLAX PR SCH ×2 (08:17→20:44)
[2019-07-12] MEDS: LEVEMIR SUBQ SCH (08:25)
--- NOTE | 2019-07-12 13:26 | PROGRESS NOTE ---
DATE: 07/12/2019 INTERVAL HISTORY: No acute events overnight. She did have a drop in her urine output of about 30 mL/hour. Her Smart catheter was changed overnight. SUBJECTIVE: She is intubated. She has been requiring multiple doses of morphine and lorazepam to help her come down despite the fact that she has been on propofol drip. She had fractional excretion of sodium of 0.1 suggestive of prerenal etiology. Sputum culture taken in lab. She was not tolerating tube feeds well, so stool softeners have been ordered. VITALS: Afebrile, temperature of 97 degrees, pulse of 99, respiratory rate 18, blood pressure 130/60, saturating 95% on 50% FiO2 ventilator. PHYSICAL EXAMINATION: General: She has a nasogastric tube, endotracheal tube, urine catheter. Oral cavity appears dry with flecks of saliva. Pulmonary: Air entry bilaterally equal. Bilateral rhonchi. Cardiovascular: S1, S2 normal. Tachycardic. No murmur, rub, or gallop. Abdomen: Soft, nontender. Extremity: No lower extremity edema. She is grimacing to painful stimuli in all extremities. LABS: CBC is unremarkable except hemoglobin of 11.8. ABG suggestive of pH of 7.37, pCO2 of 43. She does have hypokalemia. Creatinine of 1.4, glucose of 239. MICROBIOLOGY: Sputum culture is in lab. IMAGING: Chest x-ray showed bilateral infiltrates. ASSESSMENT AND PLAN: 1. Acute hypoxic respiratory failure due to bilateral pneumonia, likely aspirational. Continue mechanical ventilation as per Pulmonology recommendation. Continue propofol, morphine, lorazepam as needed for achieving adequate level of sedation. Continue intravenous Zosyn and follow up with sputum culture results. 2. Acute toxic encephalopathy in the setting of recreational substance abuse with amphetamine and benzodiazepine. Serotonin syndrome is also a possibility. CT scan and EEG were unremarkable. Continue to monitor supportively. 3. Acute kidney injury with fractional excretion of sodium suggestive of prerenal etiology. She was also on intravenous vancomycin and had received a dose of Lasix which could have contributed to it. I will give her gentle intravenous fluid resuscitation. 4. Elevated anion gap metabolic acidosis on presentation with hyperglycemia initially treated as diabetic ketoacidosis. Currently in acceptable range. Continue bicarbonate drip and I will consider stopping it based on next basic metabolic panel. DISPOSITION: Her condition is critical; more than 30 minutes of critical care time was spent taking care of this patient. Plan of care yesterday was discussed with the patient's mother at bedside. cc: Placido Garcia MD
[2019-07-12] MEDS ORDERED: SODIUM BICARBONATE 8.4% 50 MEQ in D5W 1,000 ML IV SCH (14:53)
[2019-07-12] MEDS: LASIX IV ONE ×2 (20:49→21:45)
--- NOTE | 2019-07-12 22:53 | PULMONOLOGY PROGRESS NOTE ---
DATE: 07/12/2019 SUBJECTIVE: The patient is arousable with Diprivan discontinued, but she does not follow commands and she becomes agitated. OBJECTIVE: Vital Signs: The patient has been afebrile for the last 24 hours. Blood pressure 131/74, heart rate 99, respiratory rate 16, oxygen saturation 97%. HEENT: Pupils are equal. Pupils are not dilated. Oropharynx appears clear. Neck: Supple. Chest: Reveals rhonchi bilaterally. Cardiac: S1, S2. Regular rhythm. Abdomen: Soft with diminished bowel sounds. Extremities: Without edema. Genitourinary: Urine color is slightly green tinged. LABORATORIES: White blood count 144, potassium 2.8, chloride 107, bicarbonate 23, BUN 22, creatinine 1.4. White blood count 6.33, hemoglobin 11.8, platelet count 147,000. Arterial blood gas, pH 7.37, pCO2 of 43, PO2 of 178. Chest x-ray reveals bilateral infiltrates which may have marginally improved over the last 24 hours, but read as no change by the radiologist. IMPRESSION: A 28-year-old with: 1. Acute hypoxemic respiratory failure. 2. Bilateral pneumonia. 3. Benzodiazepine use and methamphetamine use. 4. Encephalopathy/altered mental status. 5. Bipolar disorder. 6. Diabetes mellitus. RECOMMENDATIONS: 1. Continue current antibiotic regimen. 2. Adjust IV fluids. Would decrease the amount of sodium bicarbonate in her fluids given increasing hypernatremia and improving serum bicarbonate level. 3. Continue DVT prophylaxis. 4. Increase tube feeds. 5. Daily weaning trials. 6. Limit the amount of propofol given evidence of metabolites in the urine. TIME: Spent in critical care management, 30+ minutes. cc: Efraín Donato MD
[2019-07-13] MEDS: DIPRIVAN 1% 1,000 MG/100 ML BOTTLE IV SCH ×5 (00:45→20:14)
[2019-07-13] MEDS: MORPHINE IV PRN ×3 (02:36→16:27)
[2019-07-13] MEDS: ZOSYN 2.25 GM in NS 50 ML IV SCH ×4 (02:36→20:14)
[2019-07-13] MEDS: ATIVAN IV PRN ×3 (02:38→16:28)
[2019-07-13] MEDS: HUMULIN R SUBQ SCH ×7 (02:43→23:00)
[2019-07-13] MEDS: ATROVENT NEB INH SCH ×6 (03:04→23:05)
[2019-07-13] MEDS: XOPENEX NEB INH SCH ×6 (03:04→23:05)
[2019-07-13 05:01] LABS: ALLEN TEST YES; BE 8.3 mmoll (-3.0-3.0); BLOOD TYPE ARTERIAL; HCO3-(ACT) 31.4 mmoll (20.0-26.0); METHB 1.3 % (0.0-1.5); O2(CT) 17.2 mL/dL (15.0-23.0); O2HB 96.1 % (95.0-99.0); PO2(98.6) 164 mmHg (60-100); SAMPLE BLOOD; SRATE 12 BPM; THB 12.5 g/dL (11.5-17.4); TVOL 500 mL; pH(98.6) 7.42 (7.35-7.45)
[2019-07-13 05:02] LABS: MODALITY VENTILATOR; PCO2(98.6) 53 mmHg (35-45)
[2019-07-13] MEDS: LOVENOX SUBQ SCH (06:01)
[2019-07-13 06:34] LABS: BASO# 0.02 X1000 (0.0-0.2); BASO% 0.4 % (0.0-0.8); EOS# 0.25 X1000 (0.0-0.7); EOS% 4.4 % (0.0-10.0); HEMATOCRIT 36.5 % (37.0-47.0); HEMOGLOBIN 12.4 g/dL (12.0-16.0); IMM GRAN# 0.05 X1000 (0.0-0.04); IMM GRAN% 0.9 % (0.0-0.5); LYMPH# 1.32 X1000 (1.2-3.4); LYMPH% 23.1 % (20.5-51.1); MCH 27.2 PG (27-31); MONO# 0.36 X1000 (0.11-0.59); MONO% 6.3 % (1.7-9.3); MPV 12.1 FL (7.4-10.4); NEUT# 3.71 X1000 (1.4-6.5); NEUT% 64.9 % (42.2-75.2); PLT 154 X1000 (130-400); RBC 4.56 XMIL (4.2-5.4); RDW 15.3 % (11.5-14.5); WBC 5.71 X1000 (4.8-10.8)
[2019-07-13 07:13] LABS: CALCIUM 9.2 mg/dL (8.8-10.2); CREATININE 1.3 mg/dL (0.5-0.9); POTASSIUM 2.9 mmol/L (3.5-5.1)
--- NOTE | 2019-07-13 07:49 | Diag Imaging Result Doc PS360 ---
EXAM: CHEST-1 VIEW INDICATION: SOB TECHNIQUE: One view COMPARISON: 07/12/2019 FINDINGS: Support tubes and lines are in stable positions. Bilateral mild fusion infiltrates are grossly unchanged. No new consolidation is identified. Cardiac silhouette is stable. IMPRESSION: Stable chest. Electronically signed by Mahendra Jin 07/13/2019 7:46 AM
[2019-07-13] MEDS: NEXIUM PACKET NG SCH (08:01)
[2019-07-13] MEDS: MIRALAX NG SCH (08:01)
[2019-07-13] MEDS: DULCOLAX PR SCH ×2 (08:02→20:15)
[2019-07-13] MEDS: LEVEMIR SUBQ SCH (08:02)
[2019-07-13] MEDS: POTASSIUM CHLORIDE 20 MEQ/SWI 20 MEQ/100 ML IVPB IV SCH ×3 (09:52→14:16)
[2019-07-13] MEDS ORDERED: 1/2 NS 1,000 ML IV SCH (10:00)
[2019-07-13] MEDS: D5 1/2 NS 1,000 ML IV SCH (10:05)
--- NOTE | 2019-07-13 10:26 | PROGRESS NOTE ---
DATE: 07/13/2019 INTERVAL HISTORY: She was given a dose of intravenous Lasix yesterday. She has been requiring additional IV sedation on top of propofol probably once every shift. SUBJECTIVE: She is intubated. Does not follow commands. VITALS: She has been afebrile. Temperature of 97.4 degrees, pulse 88, respiratory rate 15, blood pressure 140/60, saturating 93% on 40% mechanical ventilation. PHYSICAL EXAMINATION: She does not appear agitated at the moment. She had endotracheal tube, nasogastric tube, urine catheter. Air entry bilaterally equal. No wheeze, rhonchi, or crackles. Cardiovascular: S1, S2 normal. No murmur, rub, or gallop. Abdomen: Soft, nontender. No lower extremity edema. She is very quickly fidgety on painful stimuli, all extremities. Input and output suggest she has 3 L of urine over the last 24 hours. LABORATORY DATA: CBC is stable. ABG suggestive of hypercarbia which is compensated. She does have elevated bicarbonate and hypokalemia, which is currently being repleted for which I will consider changing her intravenous fluids. She continues to have a creatinine of 1.3, which is improving slowly. MICROBIOLOGY: So far, no positive data. IMAGING: Chest x-ray suggests bilateral mild infiltrates which are unchanged without any new consolidation. ASSESSMENT AND PLAN: 1. Acute hypoxic respiratory failure due to bilateral aspirational pneumonia. Continue mechanical ventilation as per pulmonary recommendation, propofol, morphine, lorazepam as needed for adequate level of sedation, and intravenous Zosyn. Culture data has been negative so far. 2. Acute toxic encephalopathy in the setting of recreational substance abuse with amphetamine, benzodiazepine, suspected serotonin syndrome. CT scan and electroencephalogram were unremarkable. Continue to monitor her supportively. 3. Acute kidney injury due to ongoing critical illness and to some degree of intravascular volume depletion as well as use of vancomycin, now currently stable. I will continue gentle intravenous fluid resuscitation. 4. Elevated anion gap metabolic acidosis on presentation with hyperglycemia, treated at diabetic ketoacidosis initially. Currently, blood sugar is in acceptable range. I will change her fluids to lactated Ringer's and will add dextrose in the future as necessary. Currently, her bicarbonate is in acceptable range. 5. Disposition. Her condition is critical. More than 30 minutes of critical care time were spent in taking care of this patient. cc: Placido Garcia MD
--- NOTE | 2019-07-13 19:49 | PULMONOLOGY PROGRESS NOTE ---
DATE: 07/13/2019 SUBJECTIVE: Sedation was held. The patient becomes agitated and squirms in the bed. She does not follow commands. OBJECTIVE: Vital Signs: The patient has been afebrile for the last 24 hours. BP 122/65, heart rate 88, respiratory rate 18, oxygen saturation 97%. HEENT: Pupils are equal and reactive. Oropharynx appears clear. Neck: Is supple. Chest: Reveals coarse rhonchi bilaterally. Cardiac exam: S1, S2. Abdomen: Is soft. Extremities: Are without edema. LABORATORIES: Chest x-ray reveals patchy infiltrates bilaterally without change. White blood count 5.71, hemoglobin 12.4, platelet count 154,000. Sodium 142, potassium 2.9, chloride 99, bicarbonate 30, BUN 17, creatinine 1.3. Arterial blood gas, pH 7.42, pCO2 of 53, PO2 of 164. Microbiology reveals no new data. IMPRESSION: A 28-year-old with 1. Acute hypoxemic respiratory failure. 2. Bilateral pneumonia. 3. Benzodiazepine use and methamphetamine use. 4. Encephalopathy. 5. Bipolar disorder. 6. Diabetes. DISCUSSION: A 28-year-old with problems as outlined above. Mental status continues to be an issue and has limited weaning at this juncture. PLAN: 1. Continue current ventilatory support with daily weaning attempts. 2. Continue antibiotic regimen. 3. Continue current fluids. TIME SPENT IN CRITICAL CARE MANAGEMENT: 30+ minutes. cc: Efraín Donato MD
[2019-07-14] MEDS: DIPRIVAN 1% 1,000 MG/100 ML BOTTLE IV SCH ×5 (00:49→23:17)
[2019-07-14] MEDS: MORPHINE IV PRN ×3 (00:50→18:33)
[2019-07-14] MEDS: ATIVAN IV PRN ×2 (00:51→14:14)
[2019-07-14] MEDS: ATROVENT NEB INH SCH ×6 (03:18→23:21)
[2019-07-14] MEDS: XOPENEX NEB INH SCH ×6 (03:19→23:21)
[2019-07-14] MEDS: ZOSYN 2.25 GM in NS 50 ML IV SCH ×4 (03:30→20:51)
[2019-07-14] MEDS: HUMULIN R SUBQ SCH ×7 (03:31→23:18)
[2019-07-14 04:41] LABS: ALLEN TEST YES; BE 7.4 mmoll (-3.0-3.0); BLOOD TYPE ARTERIAL; HCO3-(ACT) 30.7 mmoll (20.0-26.0); METHB 1.1 % (0.0-1.5); O2(CT) 17.3 mL/dL (15.0-23.0); O2HB 96.1 % (95.0-99.0); PO2(98.6) 120 mmHg (60-100); SAMPLE BLOOD; SAO2 98.9 % (95.0-100.0); SRATE 12 BPM; THB 12.7 g/dL (11.5-17.4); TVOL 500 mL; pH(98.6) 7.41 (7.35-7.45)
[2019-07-14 04:43] LABS: MODALITY VENTILATOR; PCO2(98.6) 53 mmHg (35-45)
[2019-07-14] MEDS: D5 1/2 NS 1,000 ML IV SCH (05:15)
[2019-07-14] MEDS: LOVENOX SUBQ SCH (05:16)
[2019-07-14 06:44] LABS: BASO# 0.02 X1000 (0.0-0.2); BASO% 0.3 % (0.0-0.8); EOS# 0.26 X1000 (0.0-0.7); EOS% 4.4 % (0.0-10.0); HEMATOCRIT 36.2 % (37.0-47.0); HEMOGLOBIN 11.7 g/dL (12.0-16.0); IMM GRAN# 0.08 X1000 (0.0-0.04); IMM GRAN% 1.4 % (0.0-0.5); LYMPH# 1.44 X1000 (1.2-3.4); LYMPH% 24.6 % (20.5-51.1); MCH 26.5 PG (27-31); MCHC 32.3 g/dL (33-37); MCV 81.9 FL (81-99); MONO# 0.37 X1000 (0.11-0.59); MONO% 6.3 % (1.7-9.3); NEUT# 3.69 X1000 (1.4-6.5); PLT 141 X1000 (130-400); RBC 4.42 XMIL (4.2-5.4); WBC 5.86 X1000 (4.8-10.8)
--- NOTE | 2019-07-14 07:14 | Diag Imaging Result Doc PS360 ---
EXAM: CHEST-1 VIEW 07/14/2019 HISTORY: SOB TECHNIQUE: AP portable at 0526 COMMENT: There is an endotracheal tube with its tip at thoracic inlet and an NG tube which passes below the diaphragm. There is alveolar opacity partially obscuring the left hemidiaphragm. This has worsened since the previous study of 07/13/2019. IMPRESSION: Worsening pulmonary edema versus pneumonia left lower lobe. Electronically signed by Brian Clarke 07/14/2019 7:11 AM
[2019-07-14 07:30] LABS: AGAP 11; BUN 20 mg/dL (8-22); CALCIUM 8.5 mg/dL (8.8-10.2); CHLORIDE 98 mmol/L (98-107); COSMO 284; ESTIMATED GFR > 60; GLUCOSE 231 mg/dL (70-104); POTASSIUM 3.9 mmol/L (3.5-5.1); SODIUM 137 mmol/L (136-145); TCO2 28 mmol/L (25-35)
[2019-07-14] MEDS: MIRALAX NG SCH (09:15)
[2019-07-14] MEDS: LEVEMIR SUBQ SCH (09:16)
[2019-07-14] MEDS: DULCOLAX PR SCH ×2 (09:16→20:52)
[2019-07-14] MEDS: NEXIUM PACKET NG SCH (09:16)
--- NOTE | 2019-07-14 09:31 | Diag Imaging Result Doc PS360 ---
EXAM: ABDOMEN FLAT/UPRIGHT 07/14/2019 HISTORY: Rule out ileus TECHNIQUE: Flat and upright abdomen COMMENT: There is an NG tube in the stomach. The stomach is not distended. There is gas in the colon and some stool is present in the rectosigmoid colon. No evidence of small bowel dilatation is present. IMPRESSION: Nonspecific abdomen. Electronically signed by Brian Clarke 07/14/2019 9:28 AM
[2019-07-14] MEDS: HALDOL IV PRN ×2 (10:11→18:33)
--- NOTE | 2019-07-14 10:16 | PROGRESS NOTE ---
DATE: 07/14/2019 INTERVAL HISTORY: No acute events overnight. The patient has had intermittently high residuals on tube feeds, and her rate of tube feeds was accordingly modified. She has not had any bowel movement despite receiving stool softener, so abdominal x-ray has been ordered. SUBJECTIVE: She is intubated. However, with strong verbal stimuli, she opens her eyes. OBJECTIVE: Current Vital Signs: Temperature of 99 degrees, pulse 89, respiratory rate 18, blood pressure 120/65, she is saturating 96% on mechanical ventilation. Her FiO2 is 40%, and she is overbreathing on the ventilator. General: She has endotracheal tube, urine catheter, nasogastric tube. HEENT: Pupils are bilaterally equal, reacting to light. Lungs: Air entry bilaterally equal. No wheeze, rhonchi, or crackles. Cardiovascular: S1, S2 normal. Not tachycardic. No murmur, rub, or gallop. Regular rhythm. Abdomen: Soft, nontender. No rigidity. Active bowel sounds. Extremities: No lower extremity edema. Genitourinary: She has a urine catheter. Neurologic: With strong verbal stimuli, she opens her eyes, but does not follow commands. She is flickering to painful stimuli, all extremities. Her movements are more pronounced on left lower extremity as compared to the right lower extremity. However, the responses have been intermittent. LABORATORY DATA: Labs are suggestive of normocytic anemia, normal platelet count. She does have hypercarbia, which is compensated. Her BMP suggests resolution of hypokalemia, improving kidney function. Her anion gap is normal. MICROBIOLOGY: No positive data. IMAGING: Chest x-ray today suggests worsening pulmonary edema versus pneumonia of left lower lobe. Considering that her kidney function is improving, I will stop the intravenous fluids. ASSESSMENT AND PLAN: 1. Acute hypoxic respiratory failure due to bilateral aspiration pneumonia. Continue mechanical ventilation, sedation with propofol, and as needed morphine and Lorazepam as per Pulmonology recommendations. Continue intravenous Zosyn. I will stop intravenous fluids considering her acute pulmonary edema. Her ventilator oxygen requirements have been stable. Sputum culture, final result is pending. 2. Acute toxic encephalopathy on presentation, likely because of recreational substance abuse with amphetamine, benzodiazepine, and suspected serotonin syndrome, considering possible ingestion of multiple antipsychotic medications, including Zyprexa, Paxil as per history given by mother. CT scan on presentation and electroencephalogram were unremarkable. Continue to monitor supportively, and consider getting another CT scan in the future based on her mental status. 3. Acute kidney injury due to ongoing illness and intravascular volume depletion, as well as the use of vancomycin, now resolved. I will stop intravenous fluids. 4. Elevated anion gap metabolic acidosis on presentation with hyperglycemia, treated as diabetic ketoacidosis successfully, now resolved. I will continue blood sugar checks and long-acting insulin. 5. Constipation: Follow up abdominal Xray to rule out ileus/obstruction. In summary, Ms. Collier is a 28-year-old lady who had presented on 07/06/2019 with chief complaints of suspected overdose. According to mother, she was informed by the patient's boyfriend that the patient had ingested 100 tablets of something, which could not be confirmed, but when mother found the patient, she was very lethargic, so Emergency Medical Services was called. She was admitted in the intensive care unit for altered mental status, and was being managed supportively. However, she became hemodynamically unstable, and was persistently tachycardic, agitated, and tachypneic, so she was electively intubated for airway protection. She was also found to have bilateral pneumonia. Since then, she is being treated for pneumonia with antibiotics, awaiting improvement in mental status. I updated the patient's mother at bedside about the patient's critical condition. I answered all of her questions. TIME SPENT: More than 30 minutes of critical care time were spent in taking care of this patient. cc: Placido Garcia MD MTDRashard
--- NOTE | 2019-07-14 13:28 | PROGRESS NOTE ---
DATE: 07/14/2019 LOCATION: ICU bed 1. SUBJECTIVE: By report, she has become restless and agitated with sedation vacation. OBJECTIVE: Ms. Collier continues intubated, mechanically ventilated, sedated. She has some lateral eye movement with passive head turning. She moved each limb in response to noxious stimulation. She did not communicate with me on limited number of requests. Neck remains supple. I do not have any new thought or new suggestion from Neurology standpoint. Further plans will depend on her clinical course. Thank you for asking Neurology to see Ms. Collier. cc: MD JUDITH Wayne III
[2019-07-14] MEDS: PRECEDEX 200 MICROGM in NS 48 ML IV SCH (14:00)
[2019-07-14 18:21] LABS: ALLEN TEST YES; BE 8.6 mmoll (-3.0-3.0); BLOOD TYPE ARTERIAL; HCO3-(ACT) 31.5 mmoll (20.0-26.0); METHB 0.9 % (0.0-1.5); O2(CT) 18.7 mL/dL (15.0-23.0); PCO2(98.6) 49 mmHg (35-45); PO2(98.6) 76 mmHg (60-100); SAMPLE BLOOD; SAO2 97.1 % (95.0-100.0); THB 14.1 g/dL (11.5-17.4); pH(98.6) 7.45 (7.35-7.45)
[2019-07-14 18:22] LABS: MODALITY VENTILATOR
[2019-07-15] MEDS: ZOSYN 2.25 GM in NS 50 ML IV SCH ×4 (03:03→20:22)
[2019-07-15] MEDS: HUMULIN R SUBQ SCH ×5 (03:04→20:05)
[2019-07-15] MEDS: DIPRIVAN 1% 1,000 MG/100 ML BOTTLE IV SCH ×2 (03:16→08:37)
[2019-07-15] MEDS: XOPENEX NEB INH SCH ×6 (03:44→23:02)
[2019-07-15] MEDS: ATROVENT NEB INH SCH ×6 (03:44→23:02)
[2019-07-15] MEDS: MORPHINE IV PRN (04:14)
[2019-07-15] MEDS: ATIVAN IV PRN (04:15)
[2019-07-15 04:52] LABS: ALLEN TEST YES; BE 8.1 mmoll (-3.0-3.0); BLOOD TYPE ARTERIAL; HCO3-(ACT) 31.2 mmoll (20.0-26.0); METHB 0.9 % (0.0-1.5); O2(CT) 17.9 mL/dL (15.0-23.0); O2HB 94.7 % (95.0-99.0); PCO2(98.6) 48 mmHg (35-45); PO2(98.6) 80 mmHg (60-100); SAMPLE BLOOD; SAO2 97.6 % (95.0-100.0); THB 13.4 g/dL (11.5-17.4); pH(98.6) 7.45 (7.35-7.45)
[2019-07-15 04:53] LABS: MODALITY VENTILATOR
[2019-07-15] MEDS: LOVENOX SUBQ SCH (05:30)
--- NOTE | 2019-07-15 07:04 | Diag Imaging Result Doc PS360 ---
CHEST-1 VIEW - 07/15/2019 INDICATION: SOB COMPARISON: 07/14/2019 FINDINGS: The endotracheal tube is at T2. Nasogastric tube is in good position in the stomach. There has been improvement in the left lower lobe infiltrate or atelectasis. No new infiltrates. Heart size is top normal. IMPRESSION: Improved aeration of the left lung base. No complication. Electronically signed by Dk Yee 07/15/2019 7:02 AM
[2019-07-15 07:10] LABS: BASO# 0.07 X1000 (0.0-0.2); BASO% 1.1 % (0.0-0.8); EOS# 0.39 X1000 (0.0-0.7); EOS% 6.1 % (0.0-10.0); HEMATOCRIT 38.8 % (37.0-47.0); HEMOGLOBIN 12.8 g/dL (12.0-16.0); IMM GRAN# 0.16 X1000 (0.0-0.04); IMM GRAN% 2.5 % (0.0-0.5); LYMPH# 1.74 X1000 (1.2-3.4); LYMPH% 27.3 % (20.5-51.1); MCH 26.9 PG (27-31); MCV 81.7 FL (81-99); MONO# 0.58 X1000 (0.11-0.59); MONO% 9.1 % (1.7-9.3); MPV 11.9 FL (7.4-10.4); NEUT# 3.44 X1000 (1.4-6.5); NEUT% 53.9 % (42.2-75.2); PLT 167 X1000 (130-400); RBC 4.75 XMIL (4.2-5.4); RDW 14.4 % (11.5-14.5); WBC 6.38 X1000 (4.8-10.8)
[2019-07-15] MEDS: PRECEDEX 200 MICROGM in NS 48 ML IV SCH ×3 (08:36→14:32)
[2019-07-15] MEDS: MIRALAX NG SCH (09:28)
[2019-07-15] MEDS: DULCOLAX PR SCH ×2 (09:28→20:23)
[2019-07-15] MEDS: NEXIUM PACKET NG SCH (09:30)
[2019-07-15] MEDS: LEVEMIR SUBQ SCH (09:35)
[2019-07-15 10:40] LABS: AGAP 14; BUN 25 mg/dL (8-22); CALCIUM 8.9 mg/dL (8.8-10.2); CHLORIDE 101 mmol/L (98-107); COSMO 294; CREATININE 0.8 mg/dL (0.5-0.9); ESTIMATED GFR > 60; GLUCOSE 220 mg/dL (70-104); POTASSIUM 3.7 mmol/L (3.5-5.1); SODIUM 142 mmol/L (136-145); TCO2 27 mmol/L (25-35)
--- NOTE | 2019-07-15 14:09 | PROGRESS NOTE ---
DATE: 07/15/2019 LOCATION: ICU bed 1. Ms. Collier is seen on rounds with propofol on hold for about 40 minutes. She is moving all limbs vigorously at times. Limb tone is symmetric. There is brisk withdrawal with noxious stimulation over each limb. She partly opened her eyes spontaneously. There is full lateral eye movement with passive head turning. She did not communicate with me in any way. I do not have any new thoughts or new suggestions today from a Neurology standpoint. Further plans will depend on her clinical course. Thank you for asking us to see Ms. Collier. cc: MD JUDITH Wayne III
[2019-07-15] MEDS: HALDOL IV PRN ×2 (14:50→21:59)
[2019-07-15] MEDS: GEODON IM PRN (15:12)
[2019-07-15] MEDS: STERILE WATER INJ. INJ PRN (15:12)
--- NOTE | 2019-07-15 22:25 | PROGRESS NOTE ---
DATE: 07/15/2019 SUBJECTIVE: The patient is resting comfortably in bed. She was just extubated earlier today. She remains confused and does not follow commands. OBJECTIVE: Vital Signs: Temperature 96 degrees, blood pressure 185/92, heart rate 88, respirations 18, O2 saturation 99% on a Venturi mask. Intake 1.9 L. Output 1.1 L. General: This is a young female lying in bed in no acute distress. Heart: S1, S2 normal, bradycardic. Abdomen: Positive bowel sounds. Soft, nontender, nondistended. Extremities: Trace pedal edema bilaterally. Neurologic: The patient responds to painful stimuli, but does not follow commands. LABS: White blood cell count 6.3, hemoglobin 12, hematocrit 38, platelets 167,000. Sodium 142, potassium 3.7, chloride 101, CO2 27, BUN 25, creatinine 0.8, glucose 160. ASSESSMENT AND PLAN: 1. Acute hypoxemic respiratory failure status post extubation. Continue to treat the underlying pneumonia. Continue with pulmonary toiletry. 2. Pneumonia. Continue with antibiotic therapy. 3. Global encephalopathy. Continue to monitor the patient closely for improvement. 4. Polysubstance abuse. Aware. 5. Schizoaffective disorder. Aware. 6. Diabetes mellitus type 2. Continue with sliding scale insulin and Levemir. 7. Gastrointestinal prophylaxis. Continue on Nexium. 8. Deep vein thrombosis prophylaxis. Continue on Lovenox. cc: Loree Faust MD
[2019-07-16] MEDS: ATROVENT NEB INH SCH ×6 (03:11→23:09)
[2019-07-16] MEDS: XOPENEX NEB INH SCH ×6 (03:11→23:09)
[2019-07-16] MEDS: ZOSYN 2.25 GM in NS 50 ML IV SCH ×4 (03:32→20:09)
[2019-07-16] MEDS: HUMULIN R SUBQ SCH ×6 (03:36→23:32)
[2019-07-16 04:54] LABS: ALLEN TEST YES; BE 1.6 mmoll (-3.0-3.0); BLOOD TYPE ARTERIAL; HCO3-(ACT) 26.2 mmoll (20.0-26.0); O2(CT) 17.9 mL/dL (15.0-23.0); PO2(98.6) 194 mmHg (60-100); SAMPLE BLOOD; SAO2 99.3 % (95.0-100.0); THB 12.8 g/dL (11.5-17.4)
[2019-07-16 04:57] LABS: MODALITY COOL AEROSOL; PCO2(98.6) 19 mmHg (35-45); pH(98.6) 7.64 (7.35-7.45)
[2019-07-16] MEDS: HALDOL IV PRN (06:05)
[2019-07-16] MEDS: LOVENOX SUBQ SCH (06:06)
[2019-07-16 06:20] LABS: BASO# 0.04 X1000 (0.0-0.2); BASO% 0.4 % (0.0-0.8); EOS# 0.12 X1000 (0.0-0.7); EOS% 1.3 % (0.0-10.0); HEMATOCRIT 38.9 % (37.0-47.0); HEMOGLOBIN 12.6 g/dL (12.0-16.0); IMM GRAN# 0.11 X1000 (0.0-0.04); IMM GRAN% 1.2 % (0.0-0.5); LYMPH# 1.45 X1000 (1.2-3.4); MCHC 32.4 g/dL (33-37); MCV 80.2 FL (81-99); MONO# 0.61 X1000 (0.11-0.59); MONO% 6.7 % (1.7-9.3); MPV 12.2 FL (7.4-10.4); NEUT# 6.71 X1000 (1.4-6.5); NEUT% 74.4 % (42.2-75.2); PLT 169 X1000 (130-400); RBC 4.85 XMIL (4.2-5.4); RDW 13.8 % (11.5-14.5); WBC 9.04 X1000 (4.8-10.8)
[2019-07-16 06:51] LABS: AGAP 21; ALB/GLOB RATIO 0.7; ALBUMIN 2.8 g/dL (3.5-5.0); ALKALINE PHOSPHATASE 264 U/L (32-104); BUN 26 mg/dL (8-22); CALCIUM 9.2 mg/dL (8.8-10.2); CHLORIDE 100 mmol/L (98-107); COSMO 290; CREATININE 0.9 mg/dL (0.5-0.9); ESTIMATED GFR > 60; GLUCOSE 204 mg/dL (70-104); GOT 29 U/L (10-30); GPT 23 U/L (10-36); MAGNESIUM 1.7 mg/dL (1.5-2.7); PHOSPHORUS 3.7 mg/dL (2.7-4.5); POTASSIUM 3.8 mmol/L (3.5-5.1); SODIUM 140 mmol/L (136-145); TCO2 19 mmol/L (25-35); TOTAL BILIRUBIN 0.42 mg/dL (0.20-1.00)
--- NOTE | 2019-07-16 07:46 | Diag Imaging Result Doc PS360 ---
EXAM: CHEST-1 VIEW 07/16/2019 HISTORY: SOB TECHNIQUE: AP portable at 0530 COMMENT: There is an NG tube with its tip below the diaphragm. The lungs are clearer than they were on 07/15/2019. The heart and pulmonary vascularity are within normal limits. IMPRESSION: Marked improvement in pulmonary edema. Electronically signed by Brian Clarke 07/16/2019 7:44 AM
[2019-07-16] MEDS: LEVEMIR SUBQ SCH (08:11)
[2019-07-16] MEDS: NEXIUM PACKET NG SCH (08:11)
--- NOTE | 2019-07-16 10:35 | PROGRESS NOTE ---
DATE: 07/16/2019 SUBJECTIVE: The patient is resting comfortably in bed. She is currently in wrist restraints due to confusion and impulsivity. OBJECTIVE: Vital Signs: Temperature 98.6 degrees, blood pressure 141/94, heart rate 97, respirations 20, O2 saturation 96% on 3 L nasal cannula. Intake 1.9 L, output 805. General: This is a young female lying in bed in no acute distress. Heart: S1, S2 normal. Regular rate and rhythm. Lungs: Equal air entry bilaterally. No wheezing. No rales. Abdomen: Positive bowel sounds. Soft, nontender, nondistended. Extremities: No edema, no cyanosis. Neurologic: The patient is awake but will not talk. She follows commands occasionally. LABS: White blood cell count 9, hemoglobin 12, hematocrit 38, platelets 169,000. Sodium 140, potassium 3.8, chloride 100, CO2 19, BUN 26, creatinine 0.9, glucose 204, magnesium 1.7, phosphorus 3.7. Chest x-ray shows improvement in the pulmonary edema. ASSESSMENT AND PLAN: 1. Acute hypoxemic respiratory failure status post extubation. Continue with pulmonary toiletry. 2. Pneumonia. Improved. Continue with Zosyn. 3. Global encephalopathy. The patient is more awake today. We will continue to monitor closely for improvement. Neurology is following. 4. Polysubstance abuse. Aware. 5. Schizoaffective disorder. Aware. The patient will likely need inpatient psych placement for stabilization of her psychiatric condition. 6. Diabetes mellitus type 2. Continue on Levemir and sliding scale insulin. 7. Gastrointestinal prophylaxis. Continue on Nexium. 8. Deep vein thrombosis prophylaxis. Continue on Lovenox. cc: Loree Faust MD [facility]
--- NOTE | 2019-07-16 11:59 | PROGRESS NOTE ---
DATE: 07/16/2019 LOCATION: ICU bed #1. SUBJECTIVE: Ms. Collier has been extubated. This morning, each limb is restrained. OBJECTIVE: She is awake, alert, bright, and sometimes attentive. She followed simple commands, including holding up fingers and moving limbs. She opened and closed her eyes, and looked left and right to command. She grumbled when I asked her to make some noise, but she did not speak. When I asked her to say her name, she did not speak. Limb tone is symmetric. She moved each limb vigorously and equally. Lateral eye movements are full. Tongue is midline. IMPRESSION: Global encephalopathy, much improved. I do not have any new thoughts or new suggestions from Neurology standpoint today. Further plans will depend on her clinical course. Thank you for asking us to see her. cc: MD JUDITH Wayne III
[2019-07-16] MEDS: GEODON IM PRN (13:33)
[2019-07-16] MEDS: STERILE WATER INJ. INJ PRN (13:34)
[2019-07-17] MEDS: ZOSYN 2.25 GM in NS 50 ML IV SCH ×4 (02:54→20:16)
[2019-07-17] MEDS: XOPENEX NEB INH SCH ×6 (03:24→23:29)
[2019-07-17] MEDS: ATROVENT NEB INH SCH ×6 (03:24→23:29)
[2019-07-17] MEDS: HUMULIN R SUBQ SCH ×3 (04:19→11:05)
[2019-07-17] MEDS: LOVENOX SUBQ SCH ×2 (04:19→06:21)
[2019-07-17 04:46] LABS: BASO# 0.03 X1000 (0.0-0.2); BASO% 0.5 % (0.0-0.8); EOS# 0.03 X1000 (0.0-0.7); EOS% 0.5 % (0.0-10.0); HEMATOCRIT 35.4 % (37.0-47.0); HEMOGLOBIN 11.6 g/dL (12.0-16.0); IMM GRAN% 3.1 % (0.0-0.5); LYMPH# 1.09 X1000 (1.2-3.4); MCHC 32.8 g/dL (33-37); MCV 79.2 FL (81-99); MONO# 0.35 X1000 (0.11-0.59); MONO% 5.4 % (1.7-9.3); MPV 11.6 FL (7.4-10.4); NEUT# 4.73 X1000 (1.4-6.5); NEUT% 73.5 % (42.2-75.2); PLT 166 X1000 (130-400); RBC 4.47 XMIL (4.2-5.4); RDW 13.9 % (11.5-14.5); WBC 6.43 X1000 (4.8-10.8)
[2019-07-17 05:01] LABS: AGAP 24; BUN 26 mg/dL (8-22); CALCIUM 9.1 mg/dL (8.8-10.2); CHLORIDE 98 mmol/L (98-107); COSMO 287; ESTIMATED GFR > 60; GLUCOSE 257 mg/dL (70-104); POTASSIUM 3.1 mmol/L (3.5-5.1); SODIUM 137 mmol/L (136-145); TCO2 15 mmol/L (25-35)
[2019-07-17 05:36] LABS: ALLEN TEST YES; BE -7.1 mmoll (-3.0-3.0); BLOOD TYPE ARTERIAL; HCO3-(ACT) 19.4 mmoll (20.0-26.0); METHB 1.4 % (0.0-1.5); O2(CT) 17.7 mL/dL (15.0-23.0); O2HB 95.9 % (95.0-99.0); PCO2(98.6) 25 mmHg (35-45); PO2(98.6) 115 mmHg (60-100); SAMPLE BLOOD; SAO2 98.8 % (95.0-100.0); pH(98.6) 7.41 (7.35-7.45)
[2019-07-17 05:37] LABS: MODALITY CANNULA
[2019-07-17] MEDS ORDERED: POTASSIUM CHLORIDE 20% LIQUID NG ONE (07:00)
--- NOTE | 2019-07-17 07:23 | Diag Imaging Result Doc PS360 ---
EXAM: CHEST-1 VIEW HISTORY: SOB TECHNIQUE: Single view COMPARISON: 07/16/2019 FINDINGS: The nasogastric tube has been removed. The lungs are well expanded. The heart is not enlarged. The vessels are not distended. There are no infiltrates. No effusion identified. IMPRESSION: Stable chest Electronically signed by Amado Santamaria 07/17/2019 7:21 AM
[2019-07-17] MEDS: NEXIUM PACKET NG SCH (08:03)
[2019-07-17] MEDS: LEVEMIR SUBQ SCH (08:04)
[2019-07-17] MEDS ORDERED: MAG-OX PO SCH (09:00)
[2019-07-17] MEDS: HALDOL IV PRN (11:08)
--- NOTE | 2019-07-17 12:30 | PROGRESS NOTE ---
DATE: 07/17/2019 INTERVAL HISTORY: No acute events overnight. The patient did have a temperature of 100 degrees yesterday. She has been normotensive otherwise. She does have low potassium and decreasing bicarbonate which currently we are going to monitor it. Her ketones were also positive. Medication list is not reconciled yet. SUBJECTIVE: She is awake, alert, but appears confused currently. OBJECTIVE: VITAL SIGNS: Currently, temperature of 99.8 degrees, pulse 109, respiratory 24, blood pressure 150/90. She is saturating 99% on room air. PHYSICAL EXAMINATION: General: Not in acute distress. Oral cavity is dry. She was able to gulp sips of water. Lungs: Air entry bilaterally equal. No wheeze, rhonchi, crackles. Cardiovascular: S1, S2 normal. No murmur or gallop. Abdomen: Soft, nontender. Extremities: No lower extremity edema. Neurologic: She was alert, not oriented. She was able to squeeze my fingers with both hands and wiggle toes bilateral lower extremities. LABORATORY DATA: No leukocytosis, stable hemoglobin and platelet count. On the BMP, she does have hypokalemia being repleted. She also has elevated BUN and slight elevation of creatinine. MICROBIOLOGY: No positive data. IMAGING: Chest x-ray suggests stable chest. ASSESSMENT AND PLAN: 1. Acute hypoxic respiratory failure status post extubation. Continue pulmonary toiletry. 2. Bilateral lower lobe pneumonia, now improving. Continue intravenous Zosyn. Day 1 of antibiotics was 07/11/2019. 3. Global encephalopathy. Patient had history of mood disorder and may have consumed a lot of tablets at the time of presentation. It is slowly improving. CT scan, EEG were largely unremarkable. Neurology is following. Continue to monitor it. 4. Diabetes mellitus type 2 with diabetic ketoacidosis on presentation. She again has started developing low bicarbonate and anion gap. I will consider starting her on insulin drip. Surprisingly her blood glucose is not significantly elevated. 5. Deep venous thrombosis prophylaxis. Continue Lovenox. DISPOSITION: I will monitor patient in the ICU considering persistent encephalopathy and consider transitioning her to PVC tomorrow. Plan of care discussed with the patient's mother at bedside. Her questions have been answered. cc: Placido Garcia MD [facility]
[2019-07-17] MEDS ORDERED: POTASSIUM CHLORIDE 40 MEQ in NS 250 ML IV PRN (13:13)
[2019-07-17] MEDS ORDERED: POTASSIUM CHLORIDE 20 MEQ/SWI 20 MEQ/100 ML IVPB IV PRN (13:13)
[2019-07-17] MEDS ORDERED: POTASSIUM CHLORIDE 20% LIQUID PO PRN (13:13)
[2019-07-17] MEDS ORDERED: SODIUM BICARBONATE 8.4% 100 MEQ in STERILE WATER INJ. 500 ML IV PRN (13:13)
[2019-07-17] MEDS ORDERED: SODIUM PHOSPHATE 30 MMOL in D5W 250 ML IV PRN (13:13)
[2019-07-17] MEDS ORDERED: COMPAZINE IV PRN (13:13)
[2019-07-17] MEDS ORDERED: HUMULIN R 100 UNIT in NS 100 ML IV SCH (13:15)
[2019-07-17] MEDS ORDERED: D5 NS 1,000 ML IV SCH (13:30)
[2019-07-17] MEDS: NS 1,000 ML IV SCH (13:50)
[2019-07-17 14:25] LABS: AGAP 21; BUN 26 mg/dL (8-22); CHLORIDE 100 mmol/L (98-107); COSMO 285; ESTIMATED GFR > 60; GLUCOSE 219 mg/dL (70-104); MAGNESIUM 1.6 mg/dL (1.5-2.7); PHOSPHORUS 2.3 mg/dL (2.7-4.5); POTASSIUM 3.6 mmol/L (3.5-5.1); SODIUM 137 mmol/L (136-145); TCO2 16 mmol/L (25-35)
[2019-07-17] MEDS: POTASSIUM CHLORIDE 10% LIQUID PO PRN ×3 (14:32→21:57)
[2019-07-17] MEDS: MAGNESIUM SULFATE 2 GM/S.W.I. 2 GM/50 ML IVPB IV PRN (14:36)
[2019-07-17] MEDS: TYLENOL PR PRN (16:00)
[2019-07-17 17:57] LABS: AGAP 18; BUN 25 mg/dL (8-22); CHLORIDE 101 mmol/L (98-107); COSMO 284; CREATININE 0.9 mg/dL (0.5-0.9); ESTIMATED GFR > 60; GLUCOSE 211 mg/dL (70-104); MAGNESIUM 2.3 mg/dL (1.5-2.7); PHOSPHORUS 2.6 mg/dL (2.7-4.5); POTASSIUM 3.6 mmol/L (3.5-5.1); SODIUM 137 mmol/L (136-145); TCO2 18 mmol/L (25-35)
[2019-07-17 21:36] LABS: AGAP 17; BUN 24 mg/dL (8-22); CALCIUM 8.9 mg/dL (8.8-10.2); CHLORIDE 106 mmol/L (98-107); COSMO 291; CREATININE 0.9 mg/dL (0.5-0.9); ESTIMATED GFR > 60; GLUCOSE 207 mg/dL (70-104); MAGNESIUM 1.9 mg/dL (1.5-2.7); PHOSPHORUS 2.8 mg/dL (2.7-4.5); POTASSIUM 3.6 mmol/L (3.5-5.1); SODIUM 141 mmol/L (136-145); TCO2 18 mmol/L (25-35)
[2019-07-18 01:38] LABS: AGAP 16; BUN 23 mg/dL (8-22); CALCIUM 8.8 mg/dL (8.8-10.2); CHLORIDE 105 mmol/L (98-107); COSMO 288; CREATININE 0.8 mg/dL (0.5-0.9); ESTIMATED GFR > 60; GLUCOSE 195 mg/dL (70-104); MAGNESIUM 1.8 mg/dL (1.5-2.7); PHOSPHORUS 2.6 mg/dL (2.7-4.5); POTASSIUM 3.5 mmol/L (3.5-5.1); SODIUM 140 mmol/L (136-145); TCO2 19 mmol/L (25-35)
[2019-07-18] MEDS: POTASSIUM CHLORIDE 10% LIQUID PO PRN ×2 (02:04→05:30)
[2019-07-18] MEDS: ZOSYN 2.25 GM in NS 50 ML IV SCH ×4 (02:32→20:17)
[2019-07-18] MEDS: XOPENEX NEB INH SCH ×6 (03:36→23:49)
[2019-07-18] MEDS: ATROVENT NEB INH SCH ×6 (03:36→23:49)
[2019-07-18 04:49] LABS: ALLEN TEST YES; BE -1.5 mmoll (-3.0-3.0); BLOOD TYPE ARTERIAL; HCO3-(ACT) 23.7 mmoll (20.0-26.0); METHB 0.9 % (0.0-1.5); O2(CT) 17.1 mL/dL (15.0-23.0); O2HB 95.2 % (95.0-99.0); PCO2(98.6) 27 mmHg (35-45); PO2(98.6) 83 mmHg (60-100); SAMPLE BLOOD; SAO2 97.9 % (95.0-100.0); THB 12.7 g/dL (11.5-17.4); pH(98.6) 7.49 (7.35-7.45)
[2019-07-18 04:50] LABS: MODALITY ROOM AIR
[2019-07-18 05:11] LABS: BASO# 0.06 X1000 (0.0-0.2); BASO% 0.9 % (0.0-0.8); EOS# 0.09 X1000 (0.0-0.7); EOS% 1.3 % (0.0-10.0); HEMATOCRIT 36.1 % (37.0-47.0); HEMOGLOBIN 12.2 g/dL (12.0-16.0); IMM GRAN# 0.13 X1000 (0.0-0.04); IMM GRAN% 1.9 % (0.0-0.5); LYMPH# 1.62 X1000 (1.2-3.4); LYMPH% 23.1 % (20.5-51.1); MCH 26.4 PG (27-31); MCHC 33.8 g/dL (33-37); MCV 78.1 FL (81-99); MONO% 8.5 % (1.7-9.3); MPV 11.6 FL (7.4-10.4); NEUT# 4.52 X1000 (1.4-6.5); NEUT% 64.3 % (42.2-75.2); PLT 184 X1000 (130-400); RBC 4.62 XMIL (4.2-5.4); RDW 13.8 % (11.5-14.5); WBC 7.02 X1000 (4.8-10.8)
[2019-07-18] MEDS: LOVENOX SUBQ SCH (05:25)
[2019-07-18 05:31] LABS: AGAP 15; BUN 22 mg/dL (8-22); CALCIUM 8.7 mg/dL (8.8-10.2); CHLORIDE 105 mmol/L (98-107); COSMO 284; CREATININE 0.7 mg/dL (0.5-0.9); ESTIMATED GFR > 60; GLUCOSE 197 mg/dL (70-104); MAGNESIUM 1.7 mg/dL (1.5-2.7); PHOSPHORUS 2.7 mg/dL (2.7-4.5); POTASSIUM 3.5 mmol/L (3.5-5.1); SODIUM 138 mmol/L (136-145); TCO2 18 mmol/L (25-35)
[2019-07-18] MEDS: MAGNESIUM SULFATE 2 GM/S.W.I. 2 GM/50 ML IVPB IV PRN (05:50)
[2019-07-18] MEDS: APRESOLINE IV PRN ×2 (06:13→15:18)
--- NOTE | 2019-07-18 07:15 | Diag Imaging Result Doc PS360 ---
EXAM: CHEST-1 VIEW HISTORY: SOB TECHNIQUE: Single view COMPARISON: 07/17/2019 FINDINGS: The lungs are well expanded. The heart is mildly enlarged. The vessels are not distended. There are no infiltrates. No effusion identified. IMPRESSION: Stable chest Electronically signed by Amado Santamaria 07/18/2019 7:13 AM
[2019-07-18] MEDS ORDERED: MAGNESIUM SULFATE 2 GM/S.W.I. 2 GM/50 ML IVPB IV ONE (08:14)
[2019-07-18] MEDS ORDERED: LEVEMIR SUBQ ONE (08:15)
[2019-07-18] MEDS: NEXIUM PACKET NG SCH (08:26)
[2019-07-18] MEDS: NS 1,000 ML IV SCH (08:26)
[2019-07-18] MEDS: HUMULIN R SUBQ SCH ×4 (08:40→20:16)
[2019-07-18] MEDS ORDERED: INSULIN PEN NEEDLES ONE (09:18)
[2019-07-18] MEDS ORDERED: CALMOSEPTINE OINTMENT TOP PRN (10:13)
[2019-07-18 10:40] LABS: AGAP 17; ALBUMIN 3.2 g/dL (3.5-5.0); BUN 20 mg/dL (8-22); CALCIUM 8.6 mg/dL (8.8-10.2); CHLORIDE 103 mmol/L (98-107); COSMO 284; CREATININE 0.7 mg/dL (0.5-0.9); ESTIMATED GFR > 60; GLUCOSE 201 mg/dL (70-104); MAGNESIUM 2.2 mg/dL (1.5-2.7); PHOSPHORUS 2.4 mg/dL (2.7-4.5); POTASSIUM 3.6 mmol/L (3.5-5.1); SODIUM 138 mmol/L (136-145); TCO2 18 mmol/L (25-35)
[2019-07-18] MEDS ORDERED: HUMULIN R SUBQ SCH (11:00)
--- NOTE | 2019-07-18 12:08 | PROGRESS NOTE ---
DATE: 07/18/2019 SUBJECTIVE: Ms. Collier told me she does not have a significant headache now. She did not have any other specific complaints. OBJECTIVE: She is awake, alert, much more attentive than when I last saw her. She answered simple questions appropriately. She used her limbs purposefully. She held up fingers correctly to command. IMPRESSION: Global encephalopathy, likely multiple factors related to ingestions. Negative workup and the clinical course are all reassuring. I do not have any urgent suggestion from Neurology standpoint. Thanks for asking us to see Ms. Collier. cc: MD JUDITH Wayne III
[2019-07-18] MEDS: HALDOL IV PRN (14:25)
[2019-07-18 18:17] LABS: AGAP 16; ALBUMIN 3.4 g/dL (3.5-5.0); BUN 19 mg/dL (8-22); CALCIUM 8.4 mg/dL (8.8-10.2); CHLORIDE 97 mmol/L (98-107); COSMO 270; CREATININE 0.7 mg/dL (0.5-0.9); ESTIMATED GFR > 60; GLUCOSE 218 mg/dL (70-104); PHOSPHORUS 2.9 mg/dL (2.7-4.5); POTASSIUM 3.2 mmol/L (3.5-5.1); SODIUM 130 mmol/L (136-145); TCO2 17 mmol/L (25-35)
[2019-07-18] MEDS ORDERED: POTASSIUM CHLORIDE 60 MEQ in NS 500 ML IV ONE (18:20)
--- NOTE | 2019-07-18 18:55 | PROGRESS NOTE ---
DATE: 07/18/2019 SUBJECTIVE: The patient is resting comfortably. She is actually talking and talking and answering questions occasionally. OBJECTIVE: Vital Signs: Temperature 98.6 degrees, blood pressure 151/96, heart rate 106, respirations 21, O2 saturations 98% on 2 L nasal cannula. Intake 1.1 L; output 500. General: This is a young female sitting up in bed in no acute distress. Heart: S1, S2. Normal. Tachycardic. Lungs: Coarse breath sounds. Abdomen: Positive bowel sounds. Soft, nontender, nondistended. Extremities: There is pedal edema in the lower extremities. Neurologic: The patient is alert. She does follow commands. LABS: White blood cell count 7, hemoglobin 12, hematocrit 36, platelets 184. Sodium 138, potassium 3.6, chloride 103, CO2 18, BUN 20, creatinine 0.7, glucose 201, magnesium 2.2, phosphorus 2.4, albumin 3.2. X-RAYS: Chest x-ray: No infiltrates. ASSESSMENT AND PLAN: 1. Acute hypoxemic respiratory failure status post extubation. Slowly improving. Continue with pulmonary toiletry. 2. Diabetic ketoacidosis. Resolved. 3. Pneumonia. Improved. The patient remains on antibiotics and bronchodilator therapy. 4. Global encephalopathy. Slowly improving. Continue to monitor for improvement. 5. Polysubstance abuse. Aware. 6. Drug overdose. Aware. 7. Poorly controlled insulin-dependent diabetes mellitus. We will start the patient on Levemir 35 units subcutaneous twice a day and sliding scale insulin as well. 8. Gastrointestinal prophylaxis. Continue on Nexium. 9. Deep vein thrombosis prophylaxis. Continue on Lovenox. cc: Loree Faust MD [facility]
[2019-07-18] MEDS: SODIUM BICARBONATE PO SCH (20:18)
[2019-07-18] MEDS: LEVEMIR SUBQ SCH (20:18)
[2019-07-18] MEDS ORDERED: LEVEMIR SUBQ SCH (21:00)
[2019-07-19] MEDS: HUMULIN R SUBQ SCH ×6 (01:23→20:21)
[2019-07-19] MEDS: ZOSYN 2.25 GM in NS 50 ML IV SCH ×4 (03:42→20:13)
[2019-07-19] MEDS: LOVENOX SUBQ SCH (05:22)
[2019-07-19] MEDS: ATROVENT NEB INH SCH ×6 (05:33→23:39)
[2019-07-19] MEDS: XOPENEX NEB INH SCH ×6 (05:34→23:39)
[2019-07-19 06:35] LABS: HEMATOCRIT 36.2 % (37.0-47.0); MCH 26.4 PG (27-31); MCHC 33.1 g/dL (33-37); MCV 79.7 FL (81-99); MPV 11.7 FL (7.4-10.4); RBC 4.54 XMIL (4.2-5.4); RDW 14.1 % (11.5-14.5); WBC 9.32 X1000 (4.8-10.8)
[2019-07-19 06:50] LABS: MAGNESIUM 1.2 mg/dL (1.5-2.7); PHOSPHORUS 2.3 mg/dL (2.7-4.5)
[2019-07-19] MEDS ORDERED: MAGNESIUM SULFATE 2 GM/S.W.I. 2 GM/50 ML IVPB IV ONE (06:53)
[2019-07-19] MEDS ORDERED: HUMALOG SUBQ SCH (07:00)
[2019-07-19 07:33] LABS: AGAP 14; BUN 12 mg/dL (8-22); CHLORIDE 113 mmol/L (98-107); COSMO 280; CREATININE 0.4 mg/dL (0.5-0.9); ESTIMATED GFR > 60; GLUCOSE 87 mg/dL (70-104); POTASSIUM 2.6 mmol/L (3.5-5.1); SODIUM 141 mmol/L (136-145); TCO2 14 mmol/L (25-35)
--- NOTE | 2019-07-19 07:42 | Diag Imaging Result Doc PS360 ---
EXAM: CHEST-1 VIEW - 07/19/2019 HISTORY: SOB TECHNIQUE: Portable chest one view COMPARISON: 07/18/2019 FINDINGS: Heart size appears borderline enlarged and stable. Patient is rotated towards the right. The lungs appear essentially clear. There is no pleural effusion or pneumothorax identified. IMPRESSION: Stable borderline cardiomegaly. No acute changes. Electronically signed by Thanh Vences 07/19/2019 7:40 AM
[2019-07-19] MEDS ORDERED: POTASSIUM PHOSPHATE 40 MMOL in NS 250 ML IV ONE (07:45)
[2019-07-19 07:51] LABS: CALCIUM 6.3 mg/dL (8.8-10.2)
[2019-07-19] MEDS: SODIUM BICARBONATE PO SCH ×2 (09:06→20:13)
[2019-07-19] MEDS: NEXIUM PACKET PO SCH (09:06)
[2019-07-19] MEDS ORDERED: CALCIUM GLUCONATE 1 GM in NS 50 ML IV ONE (09:07)
[2019-07-19 10:02] LABS: ALLEN TEST YES; BE -3.2 mmoll (-3.0-3.0); BLOOD TYPE ARTERIAL; HCO3-(ACT) 22.4 mmoll (20.0-26.0); METHB 1.5 % (0.0-1.5); O2(CT) 17.9 mL/dL (15.0-23.0); O2HB 94.7 % (95.0-99.0); PCO2(98.6) 28 mmHg (35-45); PO2(98.6) 84 mmHg (60-100); SAMPLE BLOOD; SAO2 97.7 % (95.0-100.0); THB 13.4 g/dL (11.5-17.4); pH(98.6) 7.45 (7.35-7.45)
[2019-07-19 10:03] LABS: MODALITY ROOM AIR
[2019-07-19] MEDS: LEVEMIR SUBQ SCH ×2 (10:10→20:13)
--- NOTE | 2019-07-19 18:55 | PROGRESS NOTE ---
DATE: 07/19/2019 SUBJECTIVE: The patient is awake and alert. She is currently in wrist restraints because she is very impulsive and pulls at lines. OBJECTIVE: Vital signs: Temperature 99 degrees, blood pressure 157/86, heart rate 81, respirations 25, O2 saturation is 96% on room air. General: This is a young female lying in bed in no acute distress. Heart: S1, S2, normal. Regular rate and rhythm. Lungs: Clear to auscultation bilaterally. Abdomen: Positive bowel sounds. Soft, nontender, nondistended. Extremities: Trace pedal edema. Neurologic: The patient is alert and awake. LABORATORY DATA: White blood cell count 9.3, hemoglobin 12, hematocrit 36, platelets 178,000. Sodium 141, potassium 2.6, chloride 113, CO2 is 14, BUN 12, creatinine 0.4, glucose 130, phosphorus 2.3, magnesium 1.2. ASSESSMENT AND PLAN: 1. Acute hypoxemic respiratory failure, status post extubation. Continue with pulmonary toiletry. 2. Diabetic ketoacidosis. Resolved. 3. Poorly controlled insulin-dependent diabetes mellitus. Continue with Levemir twice a day and sliding scale insulin. 4. Pneumonia. Improved. Continue with antibiotics and bronchodilator therapy. 5. Global encephalopathy. Slowly improving. 6. Polysubstance abuse. Aware. 7. Drug overdose. Aware. 8. Gastrointestinal prophylaxis. Continue on Nexium. 9. Deep vein thrombosis prophylaxis. Continue on Lovenox. cc: Loree Fasut MD
[2019-07-19 19:03] LABS: PHOSPHORUS 5.3 mg/dL (2.7-4.5); POTASSIUM 3.7 mmol/L (3.5-5.1)
[2019-07-20] MEDS: HUMULIN R SUBQ SCH ×7 (01:51→23:23)
[2019-07-20] MEDS: XOPENEX NEB INH SCH ×6 (03:01→23:31)
[2019-07-20] MEDS: ATROVENT NEB INH SCH ×6 (03:02→23:32)
[2019-07-20] MEDS: ZOSYN 2.25 GM in NS 50 ML IV SCH ×3 (03:18→15:01)
[2019-07-20] MEDS: D50W SYRINGE IV PRN ×2 (03:18→07:28)
[2019-07-20 04:53] LABS: ALLEN TEST YES; BE -0.3 mmoll (-3.0-3.0); BLOOD TYPE ARTERIAL; HCO3-(ACT) 24.7 mmoll (20.0-26.0); METHB 1.1 % (0.0-1.5); O2(CT) 16.9 mL/dL (15.0-23.0); O2HB 95.7 % (95.0-99.0); PCO2(98.6) 29 mmHg (35-45); PO2(98.6) 90 mmHg (60-100); SAMPLE BLOOD; SAO2 98.7 % (95.0-100.0); THB 12.5 g/dL (11.5-17.4); pH(98.6) 7.49 (7.35-7.45)
[2019-07-20 04:54] LABS: MODALITY ROOM AIR
[2019-07-20] MEDS: LOVENOX SUBQ SCH (05:36)
[2019-07-20 05:43] LABS: MAGNESIUM 1.7 mg/dL (1.5-2.7); PHOSPHORUS 4.8 mg/dL (2.7-4.5)
--- NOTE | 2019-07-20 06:06 | Diag Imaging Result Doc PS360 ---
EXAM: CHEST-1 VIEW HISTORY: SOB TECHNIQUE: Single view COMPARISON: 07/19/2019 FINDINGS: The lungs are well expanded. The heart is mildly prominent. Mild central vascular distention. No consolidation. No pleural effusions identified. IMPRESSION: Mildly prominent heart with mild central vascular distention Electronically signed by Amado Santamaria 07/20/2019 6:04 AM
[2019-07-20] MEDS ORDERED: KLOR-CON PO ONE (06:18)
[2019-07-20] MEDS ORDERED: MAGNESIUM SULFATE 2 GM/S.W.I. 2 GM/50 ML IVPB IV ONE (06:19)
[2019-07-20 06:51] LABS: AGAP 19; BUN 11 mg/dL (8-22); CALCIUM 8.4 mg/dL (8.8-10.2); CHLORIDE 105 mmol/L (98-107); COSMO 280; CREATININE 0.7 mg/dL (0.5-0.9); ESTIMATED GFR > 60; GLUCOSE 87 mg/dL (70-104); SODIUM 141 mmol/L (136-145); TCO2 17 mmol/L (25-35)
[2019-07-20] MEDS: POTASSIUM CHLORIDE 20 MEQ/SWI 20 MEQ/100 ML IVPB IV SCH ×2 (07:24→09:35)
[2019-07-20] MEDS: NEXIUM PACKET PO SCH (08:58)
[2019-07-20] MEDS: SODIUM BICARBONATE PO SCH ×2 (08:58→20:03)
[2019-07-20] MEDS: LEVEMIR SUBQ SCH ×2 (08:59→20:02)
--- NOTE | 2019-07-20 16:33 | PROGRESS NOTE ---
DATE: 07/20/2019 SUBJECTIVE: The patient is resting comfortably in bed. No acute events noted overnight. OBJECTIVE: Vital Signs: Temperature 98.6 degrees, blood pressure 166/111, heart rate 80, respirations 20, O2 saturations 94% on room air. General: This is a young female lying in bed in no acute distress. Heart: S1, S2 normal. Tachycardic. Lungs: Equal air entry bilaterally. No wheezing. No rales. Abdomen: Positive bowel sounds. Soft, nontender, nondistended. Extremities: No edema, no cyanosis. Neurologic: The patient is awake and alert. LABORATORY DATA: Sodium 141, potassium 3, chloride 105, CO2 of 17, BUN 11, creatinine 0.7, glucose 87, magnesium 1.7. Chest x-ray shows mild central vascular distention. ASSESSMENT AND PLAN: 1. Acute hypoxemic respiratory failure status post extubation. Improved. 2. Mild volume overload. Stable. 3. Diabetic ketoacidosis. Resolved. 4. Poorly controlled insulin-dependent diabetes mellitus. Continue on Levemir twice a day and sliding scale insulin. 5. Pneumonia. This appears to have resolved. The patient has had a total of 10 days of antibiotic therapy, so we will discontinue the antibiotics. 6. Global encephalopathy. Improved. 7. Polysubstance abuse. Aware. 8. Drug overdose. Aware. The patient likely needs drug rehab. 9. Gastrointestinal prophylaxis. Continue on Nexium. 10. Hypertension. Will start lopressor. 11. Deep vein thrombosis prophylaxis. Continue on Lovenox. 12. We will consult physical therapy and occupational therapy. cc: Loree Faust MD [facility]
[2019-07-20] MEDS: CULTURELLE PO SCH (20:03)
[2019-07-20] MEDS: LOPRESSOR PO SCH (20:03)
[2019-07-21] MEDS: ATROVENT NEB INH SCH ×7 (03:38→22:55)
[2019-07-21] MEDS: XOPENEX NEB INH SCH ×7 (03:38→22:55)
[2019-07-21] MEDS: HUMULIN R SUBQ SCH ×5 (03:50→21:20)
[2019-07-21 04:50] LABS: ALLEN TEST YES; BE 0.3 mmoll (-3.0-3.0); BLOOD TYPE ARTERIAL; METHB 0.6 % (0.0-1.5); O2(CT) 16.4 mL/dL (15.0-23.0); O2HB 92.4 % (95.0-99.0); PCO2(98.6) 31 mmHg (35-45); PO2(98.6) 61 mmHg (60-100); SAMPLE BLOOD; SAO2 95.3 % (95.0-100.0); THB 12.6 g/dL (11.5-17.4); pH(98.6) 7.48 (7.35-7.45)
[2019-07-21 04:51] LABS: MODALITY ROOM AIR
[2019-07-21] MEDS: LOVENOX SUBQ SCH (05:02)
[2019-07-21 05:14] LABS: HEMATOCRIT 35.9 % (37.0-47.0); HEMOGLOBIN 12.3 g/dL (12.0-16.0); MCH 26.5 PG (27-31); MCHC 34.3 g/dL (33-37); MCV 77.2 FL (81-99); MPV 12.1 FL (7.4-10.4); RBC 4.65 XMIL (4.2-5.4); RDW 13.8 % (11.5-14.5); WBC 9.39 X1000 (4.8-10.8)
[2019-07-21 05:27] LABS: AGAP 16; BUN 9 mg/dL (8-22); CHLORIDE 101 mmol/L (98-107); COSMO 273; CREATININE 0.7 mg/dL (0.5-0.9); ESTIMATED GFR > 60; GLUCOSE 111 mg/dL (70-104); POTASSIUM 4.3 mmol/L (3.5-5.1); SODIUM 137 mmol/L (136-145); TCO2 20 mmol/L (25-35)
[2019-07-21] MEDS: SODIUM BICARBONATE PO SCH ×2 (08:20→21:20)
[2019-07-21] MEDS: NEXIUM PACKET PO SCH (08:20)
[2019-07-21] MEDS: CULTURELLE PO SCH ×2 (08:20→21:20)
[2019-07-21] MEDS: LOPRESSOR PO SCH (08:20)
[2019-07-21] MEDS: NORVASC PO SCH (08:20)
[2019-07-21] MEDS: LEVEMIR SUBQ SCH ×2 (08:20→21:19)
[2019-07-21] MEDS ORDERED: ZYPREXA PO SCH (09:15)
[2019-07-21] MEDS: BUSPAR PO SCH ×3 (09:23→16:58)
[2019-07-21] MEDS: PROZAC PO SCH (09:23)
[2019-07-21] MEDS: ZYPREXA PO SCH (14:19)
--- NOTE | 2019-07-21 16:38 | PROGRESS NOTE ---
DATE: 07/21/2019 SUBJECTIVE: The patient is alert and oriented x3. She is very depressed and cries frequently. OBJECTIVE: Vital Signs: Temperature 98.6 degrees, blood pressure 131/93, heart rate 80, respirations 20, O2 saturations 96% on room air. General: This is a young female sitting in bed in no acute distress. Heart: S1, S2 normal. Regular rate and rhythm. Lungs: Clear to auscultation bilaterally. Abdomen: Positive bowel sounds. Soft, nontender, nondistended. Extremities: Trace pedal edema. No cyanosis. No calf tenderness. Neurologic: The patient is alert and oriented x3. LABS: Hemoglobin 12, hematocrit 35, platelets 217. Sodium 137, potassium 4.3, chloride 101, CO2 20. BUN 9, creatinine 0.7, glucose 111, magnesium 1.8, calcium 9. ASSESSMENT AND PLAN: 1. Acute hypoxemic respiratory failure status post extubation. Resolved. 2. Diabetic ketoacidosis. Resolved. 3. Pneumonia. The patient completed a total of 10 days of antibiotic therapy. 4. Poorly controlled insulin-dependent diabetes mellitus. Continue on Levemir twice a day and sliding scale insulin. 5. Global encephalopathy. Improved. 6. Major depression. The patient's psychiatric medications have been restarted. Also, the patient will need inpatient psychiatric care. 7. Drug overdose. Aware. 8. Polysubstance abuse. Aware. 9. Hypertension. We will increase the Lopressor dosage. 10. Deep vein thrombosis prophylaxis. Continue Lovenox. 11. Continue with physical therapy and occupational therapy. 12. The patient will require inpatient psych placement. greeter guest services has been consulted to assist with placement. cc: Loree Faust MD [facility]
[2019-07-21] MEDS ORDERED: LOPRESSOR PO SCH (21:00)
[2019-07-22] MEDS: HUMULIN R SUBQ SCH ×6 (00:25→21:27)
[2019-07-22] MEDS: ATROVENT NEB INH SCH ×2 (05:16→07:34)
[2019-07-22] MEDS: XOPENEX NEB INH SCH ×2 (05:17→07:34)
[2019-07-22 06:11] LABS: HEMATOCRIT 36.5 % (37.0-47.0); HEMOGLOBIN 12.6 g/dL (12.0-16.0); MCH 26.6 PG (27-31); MCHC 34.5 g/dL (33-37); MCV 77.2 FL (81-99); MPV 11.4 FL (7.4-10.4); RBC 4.73 XMIL (4.2-5.4); RDW 14.3 % (11.5-14.5); WBC 8.39 X1000 (4.8-10.8)
[2019-07-22] MEDS: SYNTHROID PO SCH (06:15)
[2019-07-22] MEDS: LOVENOX SUBQ SCH (06:16)
[2019-07-22 06:35] LABS: AGAP 14; BUN 14 mg/dL (8-22); CHLORIDE 99 mmol/L (98-107); COSMO 274; CREATININE 0.7 mg/dL (0.5-0.9); ESTIMATED GFR > 60; GLUCOSE 185 mg/dL (70-104); POTASSIUM 4.3 mmol/L (3.5-5.1); SODIUM 134 mmol/L (136-145); TCO2 21 mmol/L (25-35)
[2019-07-22] MEDS ORDERED: INSULIN PEN NEEDLES ONE (06:37)
[2019-07-22] MEDS: LEVEMIR SUBQ SCH (09:52)
[2019-07-22] MEDS: NEXIUM PACKET PO SCH (09:52)
[2019-07-22] MEDS: BUSPAR PO SCH ×3 (09:52→16:49)
[2019-07-22] MEDS: NORVASC PO SCH (09:52)
[2019-07-22] MEDS: ZYPREXA PO SCH (09:53)
[2019-07-22] MEDS: PROZAC PO SCH (09:53)
[2019-07-22] MEDS: SODIUM BICARBONATE PO SCH ×2 (09:53→21:27)
--- NOTE | 2019-07-22 10:43 | PROGRESS NOTE ---
DATE: 07/22/2019 INTERVAL HISTORY: No acute events overnight. Ms. Collier was transferred to PCU unit. SUBJECTIVE: She is alert. She is answering most questions appropriately. She knows her name. However, she could not tell me the sequence of events which has been happening since last few weeks. She was able to tell me the medication she takes at home. She is teary during my encounter and she often times cries without identifiable reason. VITAL SIGNS: Currently temperature 98.4 degrees, pulse 92, respiratory rate 18, blood pressure 120/75. She is saturating 99% on room air. PHYSICAL EXAMINATION: Not in acute distress. Oral cavity is moist. Air entry bilaterally equal. No wheeze, rhonchi, or crackles. S1, S2 normal. No murmur or gallop. Abdomen is soft, nontender. No lower extremity edema. She is alert. She could tell me her name. She is oriented to place, person, not entirely with the situation. She is answering questions appropriately. However, her speech is diminished. She is crying during my encounter. LABS: CBC is unremarkable. BMP is largely unremarkable. MICROBIOLOGY: C. difficile analysis was negative. ASSESSMENT AND PLAN: 1. Schizophrenia, anxiety, depression. Continue her home medications of buspirone, fluoxetine, olanzapine and as needed haloperidol. She, according to report, had ingested many of her psychiatric medications with or without intention on presentation. She would benefit from inpatient psychiatric care. [place] consult has been placed. I will appreciate recommendations. Judge team on board. The patient is one-to-one suicide precautions at the moment. 2. Diabetic ketoacidosis on presentation, now resolved. She intermittently continues to have worsening bicarbonate, so I will keep her on oral bicarbonate. Continue current dose of subcutaneous insulin and space out frequency. Monitor frequent BMP. At home she was not listed to be taking any insulin and I will order hemoglobin A1c. 3. Acute encephalopathy because of use of psychiatric medications, sepsis due to bilateral lower lobe pneumonia, acute hypoxic respiratory failure due to pneumonia and underlying encephalopathy, they all have been resolved. She is currently off antibiotics and breathing well on room air. 4. Substance abuse. On presentation her urine toxicology was positive for amphetamine and benzodiazepines. Unsure if this was collected after she was given any benzodiazepine in the emergency room or not. Currently she is not showing any signs of withdrawal. 5. Deep venous thrombosis prophylaxis, Lovenox. DISPOSITION: Continue to monitor patient PVC unit. Plan of care discussed with her. Her questions have been answered. cc: Placido Garcia MD [facility]
[2019-07-22] MEDS: XOPENEX NEB INH PRN (15:23)
[2019-07-23] MEDS: LOVENOX SUBQ SCH (05:53)
[2019-07-23] MEDS: SYNTHROID PO SCH ×2 (05:53→07:41)
[2019-07-23 06:13] LABS: HEMATOCRIT 36.2 % (37.0-47.0); HEMOGLOBIN 12.3 g/dL (12.0-16.0); MCH 26.5 PG (27-31); MCV 77.8 FL (81-99); MPV 11.4 FL (7.4-10.4); RBC 4.65 XMIL (4.2-5.4); RDW 14.5 % (11.5-14.5); WBC 7.08 X1000 (4.8-10.8)
[2019-07-23 06:31] LABS: AGAP 16; BUN 19 mg/dL (8-22); CALCIUM 9.4 mg/dL (8.8-10.2); CHLORIDE 101 mmol/L (98-107); COSMO 283; CREATININE 0.6 mg/dL (0.5-0.9); ESTIMATED GFR > 60; GLUCOSE 186 mg/dL (70-104); POTASSIUM 4.4 mmol/L (3.5-5.1); SODIUM 138 mmol/L (136-145); TCO2 21 mmol/L (25-35)
[2019-07-23] MEDS: HUMULIN R SUBQ SCH ×4 (06:50→20:23)
[2019-07-23] MEDS: XOPENEX NEB INH PRN (09:51)
[2019-07-23] MEDS: PROZAC PO SCH (10:04)
[2019-07-23] MEDS: NORVASC PO SCH (10:04)
[2019-07-23] MEDS: NEXIUM PACKET PO SCH (10:05)
[2019-07-23] MEDS: ZYPREXA PO SCH (10:05)
[2019-07-23] MEDS: BUSPAR PO SCH ×3 (10:05→20:23)
[2019-07-23] MEDS: LEVEMIR SUBQ SCH (10:05)
[2019-07-23] MEDS: SODIUM BICARBONATE PO SCH ×2 (10:05→20:23)
--- NOTE | 2019-07-23 14:11 | PROGRESS NOTE ---
DATE: 07/23/2019 INTERVAL HISTORY: No acute events overnight. Yung Butcher had suggested that the patient would benefit from inpatient psychiatric admission. However, they did not have a bed. Smart catheter was discontinued. SUBJECTIVE: Patient is sitting at the edge of the edge of the bed not in acute distress. She is answering most questions appropriately. She is following commands. VITALS: Temperature 99.9 degrees, pulse 94, respirations 16, blood pressure 170/82 and saturating 100% on room air. REVIEW OF SYSTEMS: Ms Collier denies any chest pain, shortness of breath, cough, nausea, vomiting, or abdominal pain. She states she ate some orange juice. However, she is very short and darya in her responses, and does not seem interested. PHYSICAL EXAMINATION: General: Not in acute distress. Oral cavity is moist. Lungs: Air entry bilaterally equal. No wheeze, rhonchi, or crackles. Cardiovascular: S1, S2 normal. Slight tachycardic. No murmur or gallop. Abdomen: Soft, nontender. Extremities: No lower extremity edema. Neurologic: She was alert. She is answering questions appropriately, however, she is not interested in conversation. Does not have any flights of ideas. She denies any suicidal ideation LABORATORY: No leukocytosis. Normal electrolytes. ASSESSMENT AND PLAN: 1. Anxiety, depression, and schizophrenia. Continue home buspirone, fluoxetine, olanzapine and as needed haloperidol. She likely had suicide attempt at the time of presentation. Inpatient psychiatric placement is pending. Swim Coach on board. 2. Diabetic ketoacidosis on presentation, and intermittent episodes of elevated anion gap and low bicarbonate without significant hyperglycemia. I will continue her on oral bicarbonate, and follow up frequent BMP. I will also continue her on insulin long-acting as well as short- acting. 3. Acute encephalopathy because of oral use of psychiatric medications. Sepsis due to bilateral lower lobe pneumonia, suspected serotonin syndrome, and acute hypoxic respiratory failure due to pneumonia have been resolved. She is currently off antibiotics. I will monitor her for fever. In the future, I may consider repeating a chest x-ray as well as urinalysis. 4. Substance abuse. She was counseled about not using recreational substances. 5. DVT prophylaxis, Lovenox. DISPOSITION: I will transfer patient to medical floor. She is still inside the hospital as we await inpatient psychiatric placement. Plan of care discussed with her. Her questions have been answered. cc: Placido Garcia MD
--- NOTE | 2019-07-23 16:05 | PROGRESS NOTE ---
DATE: 07/23/2019 Ms. Collier has continued to improve. This morning, she is reclined in bed, awake, alert, and attentive. She answered some simple questions. She did not become defensive, but did seem a little bit annoyed by my questions. She did not report any specific complaint to me today. She denies headache. I do not have any new suggestion from neurology standpoint. Her encephalopathy appears to be resolving steadily. Thanks for asking Neurology to see Ms. Collier. cc: MD JUDITH Wayne III
[2019-07-24 05:40] LABS: AGAP 15; BUN 20 mg/dL (8-22); CALCIUM 9.2 mg/dL (8.8-10.2); CHLORIDE 98 mmol/L (98-107); COSMO 277; CREATININE 0.7 mg/dL (0.5-0.9); ESTIMATED GFR > 60; GLUCOSE 182 mg/dL (70-104); SODIUM 135 mmol/L (136-145); TCO2 22 mmol/L (25-35)
[2019-07-24] MEDS: LOVENOX SUBQ SCH (06:43)
[2019-07-24] MEDS: SYNTHROID PO SCH (06:43)
[2019-07-24] MEDS: HUMULIN R SUBQ SCH (06:44)
[2019-07-24 08:41] VITALS: BP 128/78
--- NOTE | 2019-07-24 08:47 | PROVIDER PROGRESS NOTE ---
Progress Note Pulmonary additional Note: Case assessed and full note to follow.
[2019-07-24] MEDS: PROZAC PO SCH (10:16)
[2019-07-24] MEDS: NORVASC PO SCH (10:16)
[2019-07-24] MEDS: SODIUM BICARBONATE PO SCH (10:16)
[2019-07-24] MEDS: ZYPREXA PO SCH (10:16)
[2019-07-24] MEDS: BUSPAR PO SCH (10:16)
[2019-07-24] MEDS: LEVEMIR SUBQ SCH (11:26)
[2019-07-24] MEDS: NEXIUM PACKET PO SCH (11:26)
--- NOTE | 2019-07-25 13:22 | DISCHARGE SUMMARY ---
ADMISSION DATE: 07/06/2019 DISCHARGE DATE: 07/24/2019 DISCHARGE DISPOSITION: The patient is being transferred to [facility] for management of her intentional or unintentional overdose of her psychiatric medications on presentation and history of schizophrenia. DISCHARGE CONDITION: Hemodynamically stable. HOSPITAL COURSE: Ms. Collier is alert. She knows her name. She is answering questions in 1 word, and she is following all simple commands. She intermittently cries out of no reason. DISCHARGE DIAGNOSES: 1. Acute encephalopathy due to ingestion of multiple psychiatric medication including buspirone, fluoxetine, olanzapine on presentation with unknown intention. 2. Diabetic ketoacidosis. 3. Acute hypoxic hypercarbic respiratory failure due to bilateral lower lobe pneumonia requiring intubation and mechanical ventilation. 4. Elevated anion gap and low bicarbonate episodes without significant hyperglycemia treated with oral bicarbonate. 5. Substance abuse with positive urine toxicology for amphetamine and benzodiazepine on presentation. 6. Acute kidney injury during hospital admission due to volume depletion. OTHER DIAGNOSES: 1. History of anxiety. 2. History of depression. 3. History of insulin-dependent diabetes mellitus with questionable compliance. 4. History of schizophrenia. 5. History of hypothyroidism. DISCHARGE MEDICATIONS: 1. Buspirone 10 mg t.i.d. 2. Fluoxetine 20 mg daily. 3. Olanzapine 50 mg daily. 4. Insulin human regular sliding scale with meals and at nighttime. 5. Insulin detemir 30 units subcutaneous daily. 6. Metformin 1000 mg daily. 7. Levothyroxine 88 mcg daily. 8. Amlodipine 5 mg daily. 9. Sodium bicarbonate 650 mg b.i.d.. VITALS: At time of discharge temperature 98.1 degrees, pulse 109, respiratory rate 14, blood pressure 128/78, saturating 100% on room air. PHYSICAL EXAMINATION: General: Not in acute distress. Oral cavity: Moist. Lungs: Air entry equal bilaterally. No wheeze, rhonchi or crackles. Heart: S1, S2 normal. No murmur or gallop. Abdomen: Soft, nontender. Extremity: No lower extremity edema. Neurologic: She is alert. She is able to tell me her name. She is able to answer simple questions and follow commands, like opening mouth and wiggling toes and raising both arms. She is able to walk in the hallway. She is not engaging and she is not interested in conversation though. SIGNIFICANT LABS: At the time of discharge, WBC 7000, hemoglobin 12.3, platelet 238. BUN 20, creatinine 0.7, bicarbonate 22, blood glucose 182. Her hemoglobin A1c was 11. MICROBIOLOGY: Significant micro during hospital admission: Urine culture had yeast. C difficile toxin and antigen were negative. Blood culture did not have any growth. Sputum culture did not have any growth. SIGNIFICANT IMAGING: During hospital admission on presentation, chest x-ray did not have any acute cardiopulmonary process. Head CT was negative for any acute D. Extremity venous study did not have any lower extremity DVT. Next electrocardiogram on presentation had sinus tachycardia. Encephalogram had moderate diffuse slowing indicative of [id number] nonspecific encephalopathy without any epileptiform discharges. HOSPITAL COURSE SUMMARY: Ms. Collier is a 28-year-old lady with past medical history of schizophrenia, who initially presented on 07/06/2019 with chief complaints of suspected overdose. Apparently patient's boyfriend had called the patient's mother stating that the patient had taken several of her psychiatric medications. She was listed to be taking fluoxetine, olanzapine, and buspirone. When patient's mother saw her, she was very drowsy, lethargic and not arousable, so she was brought to the emergency room. In the emergency room, she was found to have acidosis with pH of 7.29, hyperglycemia with blood glucose of 305, an elevated anion gap of 27, so she was started on intravenous insulin for suspected DKA. Her DKA, however, improved and she was later on transition to basal bolus insulin regimen. However, her mental status did not improve during the 1st 48 hours of hospital admission, and she keeps on having episodes of agitation intermittent with drowsiness. She kept on pulling her IV lines. Later on, she had started becoming tachypneic and tachycardic, and there were concerns about her ability to maintain and protect her airway, so she was intubated and hooked up on the ventilator. Chest x-ray detected bilateral multifocal pneumonia, so she was started on broad- spectrum intravenous antibiotics. She remained intubated for 4 to 5 days and required high doses of sedative medications to help coordinate her breathing with the ventilator. Eventually she was able to be weaned off ventilator, and with antibiotic course her pneumonia improved. Intermittently, she would have episodes of low bicarbonate and high anion gap despite being on long-acting insulin, so she again required insulin drip. Later on she was also started on oral bicarbonate. At the time of discharge, her bicarbonate and blood sugars are in acceptable range on long-acting insulin and oral bicarbonate. She has been restarted on her home buspirone, fluoxetine and olanzapine with dose adjustment, and it was decided to consult [facility], who accepted the patient. The patient will be transferred to [facility] for further care of her mental health issues. TIME SPENT: More than 30 minutes time was spent discharging this patient. cc: Placido Garcia MD MTDD
== END 2019-07-24 11:42 | DRG 917 ==
LOC: SUPCPDRO → ED 11:36 → EDIPHOLD 14:38 → EDBD 14:38 → EDUNIT# 14:38 → SUATTDRO 14:38 → ICU 18:29 → 2N 07-21 15:57 → 1N 07-24 00:37
PROVIDERS: ATTEND Internal Medicine